=== PATIENT | female | born 1955 | race Caucasian/White ===

== ENCOUNTER 2021-03-11 06:40 | Day surgery (SDC) | payer OTHER, SELFPAY ==
[2021-03-07 10:41] VITALS: BMI 25.0
--- NOTE | 2021-03-10 13:51 | HO.ANESPROP2 ---
Documented by User: Whit Wharton 03/10/21 13:52 HPI - Anesthesia Eval Consult details Narrative: 66yo F for Colonoscopy PMFSH Past Medical History Medical History Osteopenia Surgical History Surgical History H/O breast biopsy H/O dilation and curettage History of open reduction and internal fixation (ORIF) procedure Hx of arthroscopy of shoulder Hx of colonoscopy Hx of tonsillectomy Social History Social History Patient Tobacco Use Status: Never used Tobacco Second Hand Smoke Exposure: No Use of substances other than those prescribed or required for medical reasons: No Are you DNR?: No Advance Directives: No Advance Directives Information Provided: Yes Advance Directives on File: No Nutrition Risks: No Nutritional Risk Patient : No : No Poor oral hygiene: No Meds Allergies Allergy/AdvReac Type Severity Reaction Status Date / Time No Known Allergies Allergy Unverified 06/17/20 15:46 [No Known Allergies*] Home Medications Medication Instructions Recorded Confirmed Last Taken Type raloxifene [Evista] 60 mg PO DAILY 07/06/20 07/06/20 Unknown History Exam Exam Date and Time: March 10, 2021 1351 Height,Weight and Vital Signs: Height 5 ft 2 in Weight 62.142 kg Assessment and Plan Assessment Anesthesia Assessment: Chart Reviewed Documented by User: Ines Burton 03/11/21 07:28 PMFSH Past Medical History Medical History Osteopenia Surgical History Surgical History H/O breast biopsy H/O dilation and curettage History of open reduction and internal fixation (ORIF) procedure Hx of arthroscopy of shoulder Hx of colonoscopy Hx of tonsillectomy Social History Social History (Reviewed 03/11/21 @ 07:26 by Ines Mckeon Patient Tobacco Use Status: Never used Tobacco Second Hand Smoke Exposure: No Use of substances other than those prescribed or required for medical reasons: No Are you DNR?: No Advance Directives: No Advance Directives Information Provided: Yes Advance Directives on File: No Nutrition Risks: No Nutritional Risk Patient : No : No Poor oral hygiene: No Meds Allergies Allergy/AdvReac Type Severity Reaction Status Date / Time No Known Allergies Allergy Unverified 06/17/20 15:46 [No Known Allergies*] Home Medications Medication Instructions Recorded Confirmed Last Taken Type raloxifene [Evista] 60 mg PO DAILY 07/06/20 07/06/20 Unknown History Exam Airway Mallampati Class: II TM Dist: >3cm Neck ROM: Full Loose/Missing/Broken Teeth: No Heart: RRR Lungs: CTA Assessment and Plan Assessment Anesthesia Assessment: Anesthesia Plan Discussed and Chart Reviewed Final Anesthetic Review NPO: Yes ASA Class: I and II Final Preanesthetic Review: Meds/Allgs Chart Reviewed, Consent Obtained/Reviewed and Anes Risks/Benef Reviewed Patient Risk: Low Procedure Risk: Low Anesthetic Plan Anesthetic Plan: MAC: Disposition: Standard PACU
[2021-03-11 06:41] VITALS: BMI 25.0
[2021-03-11 07:06] VITALS: BP 151/86; PULSE 74; RESP 18; TEMP 36.3; O2SAT 97
[2021-03-11] MEDS: Lactated Ringers 1,000 ML 100 ML IVCONT (07:07)
[2021-03-11 08:17] VITALS: BP 118/63; PULSE 62; RESP 18; TEMP 36.3; O2SAT 100
--- NOTE | 2021-03-11 08:20 | P.BOP_ITS ---
Brief Operative Note Date of Service: 03/11/21 Pre-op diagnosis: Screening Post-op diagnosis: other (Diverticulosis) Procedure: Colonoscopy to the cecum and TI Surgeon: Jin Walls Anesthesia: MAC Was an Brain Wave Technician used for this Procedure?: No Estimated blood loss (mL): 0 Pathology: none sent Condition: stable Disposition: PACU
[2021-03-11 08:32] VITALS: BP 149/77; PULSE 62; RESP 16; O2SAT 99
--- NOTE | 2021-03-18 12:29 | OP_ITS ---
SURGEON: Jin Walls MD INDICATIONS: The patient presents for evaluation of colorectal cancer screening. Full consent has been obtained from her for this, including risks of bleeding and perforation. PREOPERATIVE DIAGNOSIS: Colorectal cancer screening. POSTOPERATIVE DIAGNOSIS: PROCEDURE PERFORMED: Colonoscopy to cecum and terminal ileum. ESTIMATED BLOOD LOSS: COMPLICATIONS: ANESTHESIA: Monitored anesthesia care. ASSISTANTS: SPECIMENS: POSTOPERATIVE DIAGNOSES: Colorectal cancer screening, mild sigmoid diverticulosis, and internal hemorrhoids. DESCRIPTION OF PROCEDURE: The patient was placed in the left lateral decubitus position. The digital rectal exam revealed no abnormalities. The Olympus video pediatric colonoscope was entered into the rectum and advanced easily to the cecum. Once in the cecum, I did identify normal-appearing cecal pouch with appendiceal orifice and a normal-appearing ileocecal valve. The terminal ileum was cannulated and appeared normal. The scope was withdrawn back in the colon. The entire cecum and ileocecal valve appeared normal. The scope was slowly withdrawn assessing all mucosal surfaces carefully. Preparation was excellent. I did not visualize any sign of polyps, colitis, nor angiodysplasia. There was a mild amount of sigmoid diverticulosis. In the rectum, scope was retroflexed visualizing internal hemorrhoids, but no other pathology. The rectal mucosa appeared normal. The scope was straightened out and withdrawn from the patient. She tolerated the procedure well and was returned to the recovery area in stable condition. IMPRESSION: 1. Mild sigmoid diverticulosis. 2. Internal hemorrhoids. PLAN: Given the negative exam and negative family history, I would recommend a followup colonoscopy in 10 years for further screening. She will otherwise see me on a p.r.n. basis. MD SELENA Zimmerman/[place] / [phone]
== END 2021-03-11 08:45 | disposition home or self-care (01) ==
PROVIDERS: PCP Internal Medicine; Visit Provider Internal Medicine
PROC: 0DJD8ZZ Inspection of Lower Intestinal Tract, Via Natural or Artificial Opening Endoscopic (ICD-10-PCS; CPT 45378; principal; 2021-03-11 07:30)
DX: Z12.11 Encounter for screening for malignant neoplasm of colon (principal); K57.30 Diverticulosis of large intestine without perforation or abscess without bleeding; K64.8 Other hemorrhoids; M85.80 Other specified disorders of bone density and structure, unspecified site; Z79.810 Long term (current) use of selective estrogen receptor modulators (SERMs)
CPT/HCPCS: 45378

== ENCOUNTER 2024-12-29 15:18 | Outpatient (AMB) | payer OTHER, SELFPAY ==
--- NOTE | 2024-12-29 15:19 | MHC.PC.OV ---
Vital Signs 12/29/24 15:22 Height 5 ft 2 in Weight 142 lb BMI 26.0 BP 180/96 H Blood Pressure Location Lt brachial Pulse 87 Pulse Source Pulse Oximeter Temp 98.1 F Pulse Oximetry (%) 97 Intake Visit Reasons: 2 month f/u Intake Note: sensitivity on the left side Allergies No Known Allergies [No Known Allergies*] Allergy (Verified 12/29/24 15:39) Medication List - Last Reconciled 12/29/24 by Felipa Milian PA-C raloxifene (Evista) 60 mg PO DAILY PFSH Medical History (Updated 12/29/24 @ 16:09 by Felipa Milian PA-C) Alcohol use disorder Head pain Internal hemorrhoid Diverticulosis Hypertension History of hip fracture Fibrocystic breast disease Osteopenia Surgical History Hx of colonoscopy (~03/11/21) H/O dilation and curettage H/O breast biopsy Hx of arthroscopy of shoulder Hx of tonsillectomy History of open reduction and internal fixation (ORIF) procedure Social History Patient Tobacco Use Status: Never used Tobacco Second Hand Smoke Exposure: No Questionnaire PHQ-9 Over the last 2 weeks, how often have you been bothered by any of the following problems? 1. Little interest or pleasure in doing things: not at all 2. Feeling down, depressed, or hopeless: not at all 3. Trouble falling or staying asleep, or sleeping too much: nearly every day 4. Feeling tired or having little energy: more than half the days 5. Poor appetite or overeating: not at all 6. Feeling bad about yourself - or that you are a failure or have let yourself or your family down: not at all 7. Trouble concentrating on things, such as reading the newspaper or watching television: not at all 8. Moving or speaking so slowly that other people could have noticed. Or the opposite - being so fidgety or restless that you have been moving around a lot more than usual: not at all 9. Thoughts that you would be better off or of hurting yourself in some way: not at all Total score: 5 Depression Screening Interpretation: Negative Depression Screening Done: Yes 70226 - PHQ-9 Billing: Yes Source: Developed by Tran Hernandez, Mello Li and colleagues, with an educational delmy from [employer]. Thrive Questionnaire Date Thrive assessed: 12/29/24 I am a: Patient What is your living situation today?: I have a steady place to live Within the past 12 months, did the food you bought not last and you didn't have the money to get more?: Never true Within the past 12 months, did you worry whether your food would run out before you got money to buy more?: Never true Do you have trouble paying for medicines?: No Do you have trouble getting transportation to medical appointments?: No Do you have trouble paying your heating and electricity bill?: No Do you have trouble taking care of your child, family member or friend?: No Do you have trouble with day-to-day activities such as bathing, preparing meals, shopping, managing finances, etc.?: No Are you currently unemployed and looking for a job?: No Are you interested in more education?: No THRIVE Score: 0 AUDIT C Alcohol Use Questionnaire (AUDIT-C) 1. How often do you have a drink containing alcohol?: 4 or more times a week 2. How many drinks containing alcohol do you have on a typical day when you are drinking?: 1 or 2 3. How often do you have six or more drinks on one occasion?: Never Total Score: 4 Score Reviewed/Action Taken: No ELVER-7 AMB Questionnaire ELVER-7 Date ELVER - 7 assessed: 12/29/24 Feeling nervous, anxious, or on edge: 0 = Not at all Not being able to stop or control worryin = Not at all Worrying too much about different things: 1 = Several days Trouble relaxin = Not at all Being so restless that it is hard to sit still: 0 = Not at all Becoming easily annoyed or irritable: 0 = Not at all Feeling afraid as if something awful might happen: 0 = Not at all Total ELVER-7 score (0-4 normal; 5-9 mild; 10-14 moderate; 15-21 severe): 1 Source: Developed by Tran Hernandez Kurt Kroenke and colleagues, with an educational delmy from [employer]. ELVER-7 Assessment Billing ELVER-7 Assessment Tool: ELVER-7 Assessment 33986 Physical exam (Primary Care) Vital Signs: Last Vital Signs Temp 98.1 F 12/29/24 15:22 Pulse 87 12/29/24 15:22 BP 180/96 H 12/29/24 15:22 Pulse Ox 97 12/29/24 15:22 Care Plan Goal for BP management: <130/90 started on lisinopril 10 mg and return in 2-4 weeks BMI result Body Mass Index 26.0 BMI Assessment/Plan discussion: High BMI High, discussed plan: lifestyle, weight reduction, dietary, physical activity and alcohol moderation Tobacco/Smoking Status: Tobacco use Status Patient Tobacco Use Status Never used Tobacco 12/29/24 15:26 PHQ-9: PHQ-9 Score PHQ-9: Total score 5 12/29/24 16:08 Depression Screening Interpretation: Negative Thrive Assessment: Date of Thrive Assessment Date Thrive assessed 12/29/24 12/29/24 15:31 Coding Level of Care Code New Pt Level 4 (94557) Complex EM visit Add On G2211 Diagnoses Hypertension I10 Fibrocystic breast disease N60.19 Head pain R51.9 Alcohol use disorder F10.90 Additional Codes ELVER-7 Assessment Billing - ELVER-7 Assessment Tool: ELVER-7 Assessment 11343 ([id number]) PHQ-9 - 96664 - PHQ-9 Billing: Yes ([id number]) Assessment & Plan Assessment & Plan (1) Hypertension: Code(s): I10 - Essential (primary) hypertension Category: Medical Plan: The patient's hypertension is now managed with lisinopril 10 mg daily. Close monitoring through home blood pressure checks, particularly in connection with lifestyle improvements and potential alcohol reduction, will be undertaken before the next evaluation set in two weeks to adjust treatment if necessary. (2) Fibrocystic breast disease: Code(s): N60.19 - Diffuse cystic mastopathy of unspecified breast Category: Medical Plan: Mammogram ordered until patient can follow-up with her new OBGYN in March. Patient is due for mammogram. Denies any lumps. Condition is stable. (3) Head pain: Code(s): R51.9 - Headache, unspecified Category: Medical Plan: A CT scan of the head is ordered to exclude any serious underlying condition contributing to the atypical head sensation, ensuring comprehensive assessment and management of her symptoms. (4) Alcohol use disorder: Code(s): F10.90 - Alcohol use, unspecified, uncomplicated Category: Medical Plan: The patient aims to abstain again, drawing on her past success. She is encouraged to reach out if additional support is required to facilitate cessation. Plan Plan Patient was informed and verbally consented to the use of an ambient scribe for clinic note documentation during this visit. 1. Alcohol Use Disorder The patient aims to abstain again, drawing on her past success. She is encouraged to reach out if additional support is required to facilitate cessation. 2. Essential Hypertension The patient's hypertension is now managed with lisinopril 10 mg daily. Close monitoring through home blood pressure checks, particularly in connection with lifestyle improvements and potential alcohol reduction, will be undertaken before the next evaluation set in two weeks to adjust treatment if necessary. 3. Head Pain A CT scan of the head is ordered to exclude any serious underlying condition contributing to the atypical head sensation, ensuring comprehensive assessment and management of her symptoms. Discussion Notes I discussed with the patient the new diagnosis of essential hypertension, emphasizing the importance of starting medication with lisinopril at a dosage of 10 mg daily. I reviewed the risks associated with untreated hypertension, such as cardiovascular complications, and underscored the necessity of lifestyle modifications. Regarding her head pain, I explained the CT scan's importance to rule out significant intracranial issues. We talked about the patient's history of alcohol use, and though she has no desire to start medication assistance, she's aware that support is available upon request. Follow-up care in two weeks is scheduled to review blood pressure control and any CT scan findings. Orders: Orders Complete Blood Count Auto Diff 12/29/24 Z00.00 - Encounter for general adult medical examination without abnormal findings Lipid Panel 12/29/24 Z00.00 - Encounter for general adult medical examination without abnormal findings Vitamin B12 and Folate 12/29/24 Z00.00 - Encounter for general adult medical examination without abnormal findings Vitamin A 12/29/24 Z00.00 - Encounter for general adult medical examination without abnormal findings Zinc 12/29/24 Z00.00 - Encounter for general adult medical examination without abnormal findings CT head/brain wo IV con 12/29/24 I10 - Essential (primary) hypertension, K57.90 - Diverticulosis of intestine, part unspecified, without perforation or abscess without bleeding, K64.8 - Other hemorrhoids, N60.19 - Diffuse cystic mastopathy of unspecified breast, R51.9 - Headache, unspecified Comprehensive [place]. Panel Fast 12/29/24 Z00.00 - Encounter for general adult medical examination without abnormal findings C Reactive Protein 12/29/24 Z00. - Encounter for general adult medical examination without abnormal findings Erythrocyte Sedimentation Rate 12/29/24 Z00. - Encounter for general adult medical examination without abnormal findings Liver Panel 12/29/24 Z. - Encounter for general adult medical examination without abnormal findings Magnesium 12/29/24 Z00. - Encounter for general adult medical examination without abnormal findings Hemoglobin A1c 12/29/24 Z00. - Encounter for general adult medical examination without abnormal findings Vitamin D 25-OH Total 12/29/24 Z00. - Encounter for general adult medical examination without abnormal findings TSH reflex Free T4 12/29/24 Z00. - Encounter for general adult medical examination without abnormal findings Vitamin B1 12/29/24 Z00.00 - Encounter for general adult medical examination without abnormal findings MM screening mammo BI 12/29/24 Z12.31 - Encounter for screening mammogram for malignant neoplasm of breast Medications: New lisinopril 10 mg PO DAILY 30 tabs 0RF I10 - Essential (primary) hypertension Patient Instructions: Patient Instructions - Start lisinopril 10 mg every morning. - Purchase and use a home blood pressure monitor daily, taking readings two hours post-medication. - Adopt a low-salt diet and increase physical activity. - Continue abstaining from alcohol and monitor for any withdrawal symptoms. - Attend follow-up appointment in two weeks to reassess blood pressure management and review CT scan results. - Complete labs as instructed, fasting as required, and await scheduling call for the CT scan. - Seek immediate care for any sudden or severe headache, new symptoms, or signs of hypertensive urgency/emergency. Scribe Plan - Not visible on output: History of Present Illness The patient is a 69-year-old female presenting with elevated blood pressure and head pain. She reported normal blood pressure until October when an elevated reading was noted during an emergency visit while suffering flu-like symptoms. Current readings at the office visit were high. She is not on antihypertensive medication, but lisinopril is now prescribed today and patient is agreeable. Head pain has been present without the classic headache features, described as a spot-sensitive sensation on the scalp without the typical attributes of headache. She will have a CT scan for further evaluation ordered today. She has a history of alcohol use, previously abstaining for six months but recently resumed due to situational stressors. Although she has stopped drinking since Sunday. She denies any tremors, nausea vomiting or any other withdrawal symptoms at this time. 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 - Alcohol Use: Reports previous heavy use, abstained for six months, and then resumed; currently intending to cease use again. - Physical Activity: No specific exercise regimen discussed. - Weight Management: Lost 17-18 pounds while abstaining from alcohol last summer. - Plans to retire shortly, has imminent longterm paperwork and considerations. Review of Systems - General: Denies fatigue, dizziness, or headache. - Cardiovascular: Reports no chest pain, shortness of breath, leg swelling. - Neurological: Reports usual head sensation is exacerbated by touching but denies regular headache. Physical Exam Appearance: Alert. Oriented X3. No acute distress. Head: Normal external exam. Normocephalic. Atraumatic. Reports a funny sensation on the scalp and pain in a specific spot on the head when touched. Eyes: Pupils are equal, round, and reactive to light. Extraocular movements intact. Conjunctiva and sclera normal. Eyelids normal. Ears: External auditory canal normal. Tympanic membranes normal. Throat: Pharynx normal. Uvula midline. Moist mucous membranes. Neck: Normal inspection. Neck supple. Full range of motion. No adenopathy. Thyroid Normal. No meningeal signs. No neck mass noted. Cardiovascular: Blood pressure recorded as high at 180/96. Normal heart rate and rhythm. Heart sound normal. No murmurs noted. Pulses normal throughout. Respiratory: No respiratory distress. Painless inspiration. Breath sounds normal. No wheezes/rales/rhonchi noted. Chest nontender. No accessory muscle usage noted or decreased air movement noted. Abdomen: Soft and nontender. Bowel sounds normal in all 4 quadrants. No distention noted. No organomegaly noted. No visible injury noted. Back: No costovertebral angle tenderness. Full range of motion noted. Skin: Skin warm and dry. Normal skin color. Normal skin turgor. No rashes/lesions/lacerations noted. Extremities: No lower extremity edema. Extremities exhibit normal range of motion. Extremities nontender. Neuro: Oriented X 3. No motor deficit. No sensory deficit. Reflexes normal. Reports a funny sensation on the scalp and pain in a specific spot on the head when touched. Results - Labs pending: CBC, CMP, ESR, CRP, lipid panel, liver panel, magnesium, hemoglobin A1c. - Imaging pending: CT scan of the head.
[2024-12-29 15:22] VITALS: BP 180/96; PULSE 87; TEMP 36.7; O2SAT 97; BMI 26.0
--- OUTSIDE RECORDS SUMMARY | 2024-12-29 17:17 | XMS_ITS | Patient Health Record ---
Author Organization [facility] Address [address] [place] [address] Care Team Providers Care Precision Crop Manager Name Role Phone Bhavesh (RETIRED) Jin MULLIGAN Primary Care Provid er Unavailable Jin Walls Unavailable [phone] Reason For Referral No Information Medications Medication SIG (Take, Route, Frequency, Duration) Notes Start Date End Date Status Raloxifene HCl 60 MG Orally Active Calcium magnesium Active Vitamin D Active Vitamin B Complex Ac tive Immunizations Vaccine Route Administration Date Status Comme nts Influenza Unknown 07/14/2020 Administered Social History Tobacco Use: Social History Observation Description Date Details (start date - stop date) Never Smoker NA - NA Tobacco Use/Smoking Question Answer Notes Patient is a nonsmoker Alcohol Screen Question Answer Notes Did you have a drink contain ing alcohol in the past year? Yes How often did you have a dri nk containing alcohol in the past year? 4 or more times a week (4 points) How many drinks did you have on a typical day when you were drinking in the past year? 1 or 2 drinks (0 point) How often did you have 6 or more drinks on one occasion in the past year? Never (0 point) Points 4 Interpretation Positive Section Notes: Nonsmoker; wine with dinner Problems Problem Type SNOMED Code ICD Code Onset Dates Problem Status W/U Status Risk Notes Problem [id number] Encounter for screening for malignant neoplasm of colon (Z12.11) Active confirmed Problem [id number] Preprocedural examination (Z01.818) Active confirmed Plan Of Treatment Future Test Test Name Order Date COLONOSCOPY 02/23/2021 Insurance Providers Payer Name Payer Address Payer Phone Subscriber Number Group Number Insured Name Patient Relationship to Insured Coverage Start Date Coverage End Date [facility] INDEMNITY [address] [place] [address] [id number] EDMAR PASCUAL Self - patient is the insured Medical (General) History Medical History History ICD Code Osteopenia Denies AL,DM,CVA,Lung disease,renal dise ase Negative screening colonoscopy in 2007 Surgical History Surgery Date(Month/Year) Rotator cuff tear repair on the right Acetabular fracture-right hip
--- OUTSIDE RECORDS SUMMARY | 2024-12-29 17:17 | XMS_ITS ---
Author Organization [facility] Care Team Providers Care Human Resources Communications Manager Name Role Phone Mary Dominguez Unavailable Unavailable Whit Tiwari Unavailable Unavailable Tyrell, Matt Unavailable Unavailable Allergies and adverse reactions Code CodeSystem Substance Reaction Severity StartDate Concern Status Benadryl Unknown 05/24/2017 active Care Team Name Role Address Phone Organization Dates Whit Tiwari PCP [address] [place] [address], [address], [place] (Office): : [facility] 05/24/2017 - 05/25/2017 Mary Dominguez Attending Physician [address] [place], [address], [place] (Office): : [facility] 05/24/2017 - 05/25/2017 Matt Santillan Attending Physician [address] [place], [address], [place] (Office): [facility] 05/24/2017 - 05/25/2017 Mental Status Section Date Assessment Total Score Description 05/25/2017 CAM 0 No delirium ind icated Problems Problem # Description Date of onset Resolved Date Code CodeSystem Concern Status 1 DIFFICULTY IN WALKING, NOT ELSEWHERE CLASSIFIED 05/24/[address] active 2 MUSCLE WEAKNESS (GENERALIZED) 05/24/[address] active 3 UNSPECIFIED ABNORMALITIES OF GAIT AND MOBILITY 05/24/[address] active 4 UNSPECIFIED DISLOCATION OF RIGHT HIP, SUBSEQUENT ENCOUNTER 05/24/[address] active 5 UNSPECIFIED FRACTURE OF RIGHT ACETABULUM, SUBSEQUENT ENCOUNTER FOR FRACTURE WITH ROUTINE HEALING 05/24/[address] active Reason for Referral No Reasons for Referral Entered Social History Social History Observation Description Start Date End Date Code Code System Current Smoking Status Tobacco smoking consumption unknown 972107070 SNOMED CT Sex Assigned At Female 1955 40499-6 [facility] Vital Signs Code Code System Vitals Name Values and Units Timing Information 9279-1 [facility] Respiratory Rate Value=18.0 Units=/m in 05/25/2017 8462-4 [facility] Blood Pressure-Diastolic Value=68 Un its=mmHg 05/25/2017 8480-6 [facility] Blood Pressure-Systolic Soeao=802 Un its=mmHg 05/25/2017 8310-5 [facility] Body Temperature Value=98.6 Units=?? F 05/25/2017 8867-4 [facility] Heart rate Value=85.0 Units=/min 44007-9 [facility] O2 % BldC Oximetry Value=96.0 Units= % 05/25/2017 26367-0 [facility] Pain Level Value=8.0 05/25/2017
--- OUTSIDE RECORDS SUMMARY | 2024-12-29 17:18 | XMS_ITS | Patient Health Record ---
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 Name Role Phone Jin Ospina DO Primary Care Provider Unavail able Allergies No Known Allergies Reason For Referral No Information Medications Medication SIG (Take, Route, Fr equency, Duration) Notes Start Date End Date Status Raloxifene HCl 60 MG 1 tablet Orally Onc e a day for 30 day(s) Active Plan Of Treatment No Information Insurance Providers Payer Name Payer Address Payer Phone Subscriber Number Group Number Insured Name Patient Relationship to Insured Coverage Start Date Coverage End Date [facility] [address] [place] [phone] [id number] Camille Lam Self - patient is the insured
== END 2024-12-29 16:03 | disposition home or self-care (01) ==
LOC: HO.HMCSH 15:18
PROVIDERS: PCP Internal Medicine; Visit Provider Physician Assistant Medical
DX: I10 Essential (primary) hypertension (principal); N60.19 Diffuse cystic mastopathy of unspecified breast; R51.9 Headache, unspecified; F10.90 Alcohol use, unspecified, uncomplicated

== ENCOUNTER → 2024-12-29 15:18 | Outpatient (BNVA) | payer OTHER, SELFPAY | PROVIDERS: PCP Internal Medicine; Visit Provider Physician Assistant Medical | DX: I10 Essential (primary) hypertension (principal); N60.19 Diffuse cystic mastopathy of unspecified breast; R51.9 Headache, unspecified; F10.90 Alcohol use, unspecified, uncomplicated; Z79.899 Other long term (current) drug therapy | CPT/HCPCS: 96127 ==

== ENCOUNTER 2025-01-20 15:39 | Outpatient (AMB) | payer OTHER, SELFPAY ==
[2025-01-20 16:05] VITALS: BP 124/72; PULSE 84; RESP 14; TEMP 36.6; O2SAT 97; BMI 25.1
--- NOTE | 2025-01-20 16:05 | A.OFFPC_ITS ---
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 Accompanied by: Self / Same As Patient Allergies No Known Allergies [No Known Allergies*] Allergy (Verified 01/20/25 16:28) Medication List - Last Reconciled 01/20/25 by Felipa Milian PA-C lisinopril 10 mg PO DAILY raloxifene (Evista) 60 mg PO DAILY Tobacco use date assessed: 01/20/25 Fall risk assessment: No Falls in past year Last assessed Fall Risk: 01/20/25 Dental Screening Dental Screen Date: 01/20/25 Did you have a dental visit in the last 12 months?: Yes Did you have a dental problem in the last 6 months where you did not have access to dental care?: No Was dental information given to patient?: Patient has dentist HPI 3 week follow up HPI Details The patient is a 69-year-old female presenting with a follow-up for essential hypertension management. Her blood pressure was initially elevated but has been well-controlled with lisinopril 10 mg daily, maintaining her systolic readings in the 120s to 130s range. The patient also experiences persistent insomnia, opting for non-pharmacological approaches to address it, such as enhancing her exercise routine. 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 This cough does not currently require a change in medication but will be monitored for any increase in severity or frequency. Social history - Employment: The patient appears to be employed and has just come from work. - Family Status: Has two boys. - Exercise: Intends to increase physical exercise to help with sleep issues. [facility], [facility] Medical History (Updated 01/20/25 @ 17:30 by Felipa Milian PA-C) Cough Insomnia Alcohol use disorder Head pain Internal hemorrhoid Diverticulosis Hypertension History of hip fracture Fibrocystic breast disease Osteopenia Surgical History Hx of colonoscopy (~03/11/21) H/O dilation and curettage H/O breast biopsy Hx of arthroscopy of shoulder Hx of tonsillectomy History of open reduction and internal fixation (ORIF) procedure Family History Mother Heart disease Diabetes Father Heart attack Social History Housing: House Alcohol intake: current Alcohol intake frequency: a few times a week Alcohol type: wine Patient Tobacco Use Status: Never used Tobacco Second Hand Smoke Exposure: Yes service: No Current occupational status: employed Cognitive needs: No Hearing needs: No Vision needs: Yes (rx glasses) Questionnaire PHQ-9 Over the last 2 weeks, how often have you been bothered by any of the following problems? 1. Little interest or pleasure in doing things: not at all 2. Feeling down, depressed, or hopeless: not at all 3. Trouble falling or staying asleep, or sleeping too much: not at all 4. Feeling tired or having little energy: not at all 5. Poor appetite or overeating: not at all 6. Feeling bad about yourself - or that you are a failure or have let yourself or your family down: not at all 7. Trouble concentrating on things, such as reading the newspaper or watching television: not at all 8. Moving or speaking so slowly that other people could have noticed. Or the opposite - being so fidgety or restless that you have been moving around a lot more than usual: not at all 9. Thoughts that you would be better off or of hurting yourself in some way: not at all Total score: 0 Depression Screening Interpretation: Negative Depression Screening Done: Yes 13071 - PHQ-9 Billing: Yes Source: Developed by Drs. Jin Nails, Tran Scott, Mello Li and colleagues, with an educational delmy from [employer]. Thrive Questionnaire Date Thrive assessed: 01/20/25 I am a: Patient What is your living situation today?: I have a steady place to live Within the past 12 months, did the food you bought not last and you didn't have the money to get more?: Never true Within the past 12 months, did you worry whether your food would run out before you got money to buy more?: Never true Do you have trouble paying for medicines?: No Do you have trouble getting transportation to medical appointments?: No Do you have trouble paying your heating and electricity bill?: No Do you have trouble taking care of your child, family member or friend?: No Do you have trouble with day-to-day activities such as bathing, preparing meals, shopping, managing finances, etc.?: No Are you currently unemployed and looking for a job?: No Are you interested in more education?: No Please select the resources that you would like help with: None THRIVE Score: 0 AUDIT C Alcohol Use Questionnaire (AUDIT-C) 1. How often do you have a drink containing alcohol?: 2-3 times a week 2. How many drinks containing alcohol do you have on a typical day when you are drinking?: 1 or 2 3. How often do you have six or more drinks on one occasion?: Never Total Score: 3 Score Reviewed/Action Taken: No ELVER-7 AMB Questionnaire ELVER-7 Date ELVER - 7 assessed: 01/20/25 Feeling nervous, anxious, or on edge: 0 = Not at all Not being able to stop or control worryin = Not at all Worrying too much about different things: 0 = Not at all Trouble relaxin = Not at all Being so restless that it is hard to sit still: 0 = Not at all Becoming easily annoyed or irritable: 0 = Not at all Feeling afraid as if something awful might happen: 0 = Not at all Total ELVER-7 score (0-4 normal; 5-9 mild; 10-14 moderate; 15-21 severe): 0 Source: Developed by Drs. Jin Nails, Tran Scott, Mello Li and colleagues, with an educational delmy from [employer]. ELVER-7 Assessment Billing ELVER-7 Assessment Tool: ELVER-7 Assessment 14628 Review of Systems Const Details: - Cardiovascular: Reports stable blood pressure readings at home. - Respiratory: Reports a mild dry cough in the morning that resolves quickly. - Neurological: Denies new neurological symptoms; a brain CAT scan has been scheduled but not yet completed. - Sleep: Reports persistent insomnia. Physical exam (Primary Care) Vital Signs: Last Vital Signs Temp 97.9 F 01/20/25 16:05 Pulse 84 01/20/25 16:05 Resp 14 01/20/25 16:05 BP 124/72 01/20/25 16:05 Pulse Ox 97 01/20/25 16:05 Oxygen Delivery Method Room Air 01/20/25 16:05 Care Plan Goal for BP management: <130/90 at Goal BMI result Body Mass Index 25.1 BMI Assessment/Plan discussion: High BMI High, discussed plan: lifestyle, weight reduction, dietary, physical activity and alcohol moderation Tobacco/Smoking Status: Tobacco use Status Tobacco use date assessed 01/20/25 01/20/25 16:07 Patient Tobacco Use Status Never used Tobacco 01/20/25 16:24 PHQ-9: PHQ-9 Score PHQ-9: Total score 0 01/20/25 16:24 Depression Screening Interpretation: Negative Thrive Assessment: Date of Thrive Assessment Date Thrive assessed 01/20/25 01/20/25 16:07 Const Other: Appearance: Alert. Oriented X3. No acute distress. Head: Normal external exam. Normocephalic. Atraumatic. Eyes: Pupils are equal, round, and reactive to light. Extraocular movements intact. Conjunctiva and sclera normal. Eyelids normal. Throat: Pharynx normal. Uvula midline. Moist mucous membranes. Neck: Normal inspection. Neck supple. Full range of motion. Cardiovascular: Normal heart rate and rhythm. Heart sound normal. No murmurs noted. Respiratory: No respiratory distress. Painless inspiration. Breath sounds normal. No wheezes/rales/rhonchi noted. Chest nontender. No accessory muscle usage noted or decreased air movement noted. Back: Full range of motion noted. Skin: Skin warm and dry. Normal skin color. Normal skin turgor. No rashes/lesions/lacerations noted. Extremities: Extremities exhibit normal range of motion. Neuro: Oriented X 3. No motor deficit. No sensory deficit. Reflexes normal. Results Reviewed Results Reviewed: - Tests and Diagnostics: - Brain CAT scan appointment pending. - Mammogram not performed yet. - Diagnostics: Blood pressure readings stabilized between 120s/80s to 130s/80s. Coding Level of Care Code Est Pt Level 3 (90051) Complex EM visit Add On G2211 Diagnoses Hypertension I10 Insomnia G47.00 Cough R05.9 Additional Codes PHQ-9 - 34431 - PHQ-9 Billing: Yes ([id number]) ELVER-7 Assessment Billing - ELVER-7 Assessment Tool: ELVER-7 Assessment [id number] ([id number]) Assessment & Plan Assessment & Plan (1) Hypertension: Code(s): I10 - Essential (primary) hypertension Category: Medical Plan: The patient's hypertension is well-managed with lisinopril. Stable home blood pressure confirms medication effectiveness. Follow-up scheduled in three months to assess control and complete outstanding diagnostic tests. Condition is chronic and stable continue to monitor. (2) Insomnia: Code(s): G47.00 - Insomnia, unspecified Category: Medical Plan: The patient intends to increase exercise to aid sleep management. Pharmacologic intervention is deferred at this time, with a follow-up recommended should insomnia persist. Condition is chronic and stable continue to monitor. (3) Cough: Code(s): R05.9 - Cough, unspecified Category: Medical Plan: machine milker cough presumed related to lisinopril is being monitored. No current change in medication is required unless symptoms exacerbate. Condition is intermittent and stable will continue to monitor. Plan Plan Patient was informed and verbally consented to the use of an ambient scribe for clinic note documentation during this visit. 1. Essential Hypertension The patient's hypertension is well-managed with lisinopril. Stable home blood pressure confirms medication effectiveness. Follow-up scheduled in three months to assess control and complete outstanding diagnostic tests. 2. Insomnia The patient intends to increase exercise to aid sleep management. Pharmacologic intervention is deferred at this time, with a follow-up recommended should insomnia persist. 3. 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 No current change in medication is required unless symptoms exacerbate. During our visit, I reviewed the patient's blood pressure management, which showed improvement and stabilization due to adherence to her lisinopril regimen. The patient expressed satisfaction with current therapy and demonstrated understanding of the importance of consistent monitoring. We discussed her insomnia, deciding collectively to trial increased physical activity before considering medication. I highlighted that persistent insomnia might warrant a low-dose sedative if non-pharmacological interventions fail. Her cough, likely a side effect of lisinopril, will continue to be monitored to ensure it doesn't impede quality of life, and I reassured her that medication change is an option should symptoms worsen. Follow-ups are planned for three months hence, with outstanding tests to be completed beforehand. Patient Instructions: - Monitor your blood pressure regularly at home. - Increase physical activity to assist with sleeping; let us know if sleep problems persist. - Observe for any increase in your morning cough and report if it becomes bothersome. - Complete your brain CAT scan and blood work as soon as possible. - Schedule and complete a mammogram. - Follow up with me in three months or sooner if new symptoms develop or current symptoms worsen.
== END 2025-01-20 16:33 | disposition home or self-care (01) ==
LOC: HO.HMCSH 15:39
PROVIDERS: PCP Internal Medicine; Visit Provider Physician Assistant Medical
DX: I10 Essential (primary) hypertension (principal); G47.00 Insomnia, unspecified; R05.9 Cough, unspecified

== ENCOUNTER → 2025-01-20 15:39 | Outpatient (BNVA) | payer OTHER, SELFPAY | PROVIDERS: PCP Internal Medicine; Visit Provider Physician Assistant Medical | DX: I10 Essential (primary) hypertension (principal); G47.00 Insomnia, unspecified; R05.9 Cough, unspecified; Z79.899 Other long term (current) drug therapy | CPT/HCPCS: 96127 ==

== ENCOUNTER 2025-02-18 07:43 | Outpatient (REF) | payer OTHER, SELFPAY ==
--- NOTE | ~2025-02-18 | CT_ITS ---
EXAMINATION: CT HEAD WITHOUT IV CONTRAST HISTORY: R51.9 - Headache, unspecified. TECHNIQUE: Unenhanced helical CT of the head was performed per standard departmental protocol. Coronal and sagittal reformats of the head were also evaluated. One or more of the following techniques was used for dose reduction: Automated exposure control, adjustment of the mA and/or kV according to patient size, use of iterative reconstruction technique. DLP: 683 mGy-cm COMPARISON: There are no prior studies for comparison. FINDINGS: BRAIN: The brain parenchyma is unremarkable. There is normal baig/white differentiation. The ventricular system is normal in size and configuration. There is no mass effect or midline shift. No intra- or extra-axial fluid collections are identified. SINUSES: The visualized paranasal sinuses are clear. The mastoid air cells and middle ear cavities are well pneumatized. ORBITS: The visualized orbits are unremarkable. BONES/SOFT TISSUES: The extracranial soft tissues are unremarkable. The calvarium is intact. No suspicious lytic or sclerotic lesions. CT/CT head/brain wo IV con IMPRESSION: Unremarkable unenhanced head CT. Electronically signed by: Jin Dickens MD 02/18/2025 08:38 AM EDT
== END 2025-02-18 07:44 | disposition home or self-care (01) ==
LOC: HO.CT 07:43
PROVIDERS: PCP Internal Medicine; Visit Provider Physician Assistant Medical
DX: R51.9 Headache, unspecified (principal); K64.8 Other hemorrhoids; K57.90 Diverticulosis of intestine, part unspecified, without perforation or abscess without bleeding; I10 Essential (primary) hypertension; N60.19 Diffuse cystic mastopathy of unspecified breast
CPT/HCPCS: 70450

== ENCOUNTER → 2025-02-18 07:45 | Outpatient (BNV) | payer OTHER, SELFPAY | PROVIDERS: PCP Internal Medicine; Visit Provider Radiology Diagnostic Radiology | DX: R51.9 Headache, unspecified (principal) | CPT/HCPCS: 70450 ==

== ENCOUNTER 2025-03-10 14:44 | Outpatient (REF) | payer OTHER, SELFPAY | END 2025-03-10 14:45 | disposition home or self-care (01) | LOC: HO.MAMMO 14:44 | PROVIDERS: PCP Physician Assistant Medical; Visit Provider Physician Assistant Medical | DX: Z12.31 Encounter for screening mammogram for malignant neoplasm of breast (principal) | CPT/HCPCS: 77063; 77067 ==

== ENCOUNTER → 2025-03-10 14:45 | Outpatient (BNV) | payer OTHER, SELFPAY | PROVIDERS: PCP Physician Assistant Medical; Visit Provider Internal Medicine | DX: Z12.31 Encounter for screening mammogram for malignant neoplasm of breast (principal) | CPT/HCPCS: 77063; 77067 ==

== ENCOUNTER 2025-03-19 14:10 | Outpatient (AMB) | payer OTHER, SELFPAY ==
[2025-03-19 14:13] VITALS: BP 107/55; PULSE 88; RESP 14; TEMP 36.6; O2SAT 98; BMI 24.9
--- NOTE | 2025-03-19 14:13 | MHC.PC.OV ---
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 Symptoms began on Sunday after breakfast, with chills and fatigue experienced at work. Sweating and night sweats suggest possible fever, though temperature was not measured. Nausea without vomiting and constipation have been present since Sunday, with a single bowel movement since onset. The patient denies diarrhea and has tolerated small amounts of food and water. Headache is described as pulsing pain on one side, temporarily relieved by Advil but recurring after a few hours. The headache may be related to fever. Abdominal pain is localized to the upper quadrant, initially suspected to be due to constipation-related blockage. Pain is suspected to be gallbladder-related, especially after fatty food consumption. Family history of gallbladder issues and anatomical predisposition are noted. Social History - Alcohol Use: Reports occasional alcohol consumption, advised to avoid during current symptoms. [facility] Medical History Upper abdominal pain Cough Insomnia Alcohol use disorder Head pain Internal hemorrhoid Diverticulosis Hypertension History of hip fracture Fibrocystic breast disease Osteopenia Surgical History Hx of colonoscopy (~03/11/21) H/O dilation and curettage H/O breast biopsy Hx of arthroscopy of shoulder Hx of tonsillectomy History of open reduction and internal fixation (ORIF) procedure Family History Mother Heart disease Diabetes Father Heart attack Social History Housing: House Alcohol intake: current Alcohol intake frequency: a few times a week Alcohol type: wine Patient Tobacco Use Status: Never used Tobacco Second Hand Smoke Exposure: Yes service: No Current occupational status: employed Cognitive needs: No Hearing needs: No Vision needs: Yes (rx glasses) Questionnaire PHQ-9 Over the last 2 weeks, how often have you been bothered by any of the following problems? 1. Little interest or pleasure in doing things: not at all 2. Feeling down, depressed, or hopeless: not at all 3. Trouble falling or staying asleep, or sleeping too much: not at all 4. Feeling tired or having little energy: not at all 5. Poor appetite or overeating: not at all 6. Feeling bad about yourself - or that you are a failure or have let yourself or your family down: not at all 7. Trouble concentrating on things, such as reading the newspaper or watching television: not at all 8. Moving or speaking so slowly that other people could have noticed. Or the opposite - being so fidgety or restless that you have been moving around a lot more than usual: not at all 9. Thoughts that you would be better off or of hurting yourself in some way: not at all Total score: 0 Depression Screening Interpretation: Negative Depression Screening Done: Yes 99499 - PHQ-9 Billing: Yes Source: Developed by Drs. Jin Nails, Tran Scott, Mello Li and colleagues, with an educational delmy from [employer]. Thrive Questionnaire Date Thrive assessed: 01/20/25 I am a: Patient What is your living situation today?: I have a steady place to live Within the past 12 months, did the food you bought not last and you didn't have the money to get more?: Never true Within the past 12 months, did you worry whether your food would run out before you got money to buy more?: Never true Do you have trouble paying for medicines?: No Do you have trouble getting transportation to medical appointments?: No Do you have trouble paying your heating and electricity bill?: No Do you have trouble taking care of your child, family member or friend?: No Do you have trouble with day-to-day activities such as bathing, preparing meals, shopping, managing finances, etc.?: No Are you currently unemployed and looking for a job?: No Are you interested in more education?: No Please select the resources that you would like help with: None THRIVE Score: 0 AUDIT C Alcohol Use Questionnaire (AUDIT-C) 1. How often do you have a drink containing alcohol?: 2-3 times a week 2. How many drinks containing alcohol do you have on a typical day when you are drinking?: 1 or 2 3. How often do you have six or more drinks on one occasion?: Never Total Score: 3 Score Reviewed/Action Taken: No ELVER-7 AMB Questionnaire ELVER-7 Date ELVER - 7 assessed: 01/20/25 Feeling nervous, anxious, or on edge: 0 = Not at all Not being able to stop or control worryin = Not at all Worrying too much about different things: 0 = Not at all Trouble relaxin = Not at all Being so restless that it is hard to sit still: 0 = Not at all Becoming easily annoyed or irritable: 0 = Not at all Feeling afraid as if something awful might happen: 0 = Not at all Total ELVER-7 score (0-4 normal; 5-9 mild; 10-14 moderate; 15-21 severe): 0 Source: Developed by Drs. Jin Nails, Tran Scott, Mello Li and colleagues, with an educational delmy from [employer]. ELVER-7 Assessment Billing ELVER-7 Assessment Tool: ELVER-7 Assessment 25858 Review of Systems Const Details: - General: Reports fever, chills, and fatigue. - Gastrointestinal: Reports nausea and constipation; denies diarrhea. - Neurological: Reports headache; denies dizziness. - Respiratory: Denies cough, congestion, or sore throat. Physical exam (Primary Care) Vital Signs: Last Vital Signs Temp 97.8 F 03/19/25 14:13 Pulse 88 03/19/25 14:13 Resp 14 03/19/25 14:13 BP 107/55 L 03/19/25 14:13 Pulse Ox 98 03/19/25 14:13 Oxygen Delivery Method Room Air 03/19/25 14:13 BMI result Body Mass Index 24.9 Tobacco/Smoking Status: Tobacco use Status Tobacco use date assessed 03/19/25 03/19/25 14:17 Patient Tobacco Use Status Never used Tobacco 03/19/25 14:17 PHQ-9: PHQ-9 Score PHQ-9: Total score 0 03/19/25 14:17 Depression Screening Interpretation: Negative Thrive Assessment: Date of Thrive Assessment Date Thrive assessed 01/20/25 03/19/25 14:17 Const Other: Appearance: Alert. Oriented X3. No acute distress. Head: Normal external exam. Normocephalic. Atraumatic. Reports pulsing headache pain every three to six seconds on one side of the head and in the back. Eyes: Pupils are equal, round, and reactive to light. Extraocular movements intact. Conjunctiva and sclera normal. Eyelids normal. Ears: External auditory canal normal. Tympanic membranes normal. Throat: Pharynx normal. Uvula midline. Moist mucous membranes. Neck: Normal inspection. Neck supple. Full range of motion. No adenopathy. Thyroid Normal. No meningeal signs. No neck mass noted. Cardiovascular: Normal heart rate and rhythm. Heart sound normal. No murmurs noted. Pulses normal throughout. Respiratory: No respiratory distress. Painless inspiration. Breath sounds normal. No wheezes/rales/rhonchi noted. Chest nontender. No accessory muscle usage noted or decreased air movement noted. Abdomen: Bowel sounds normal in all 4 quadrants. Reports abdominal pain, particularly in the upper region, possibly related to gallbladder. No distention noted. No organomegaly noted. No visible injury noted. He had a Rovsing sign. Negative psoas sign. Negative obturator sign. Negative Morris's sign Back: No costovertebral angle tenderness. Full range of motion noted. Skin: Skin warm and dry. Normal skin color. Normal skin turgor. No rashes/lesions/lacerations noted. Extremities: No lower extremity edema. Extremities exhibit normal range of motion. Extremities nontender. Neuro: Oriented X 3. No motor deficit. No sensory deficit. Reflexes normal. Coding Level of Care Code Est Pt Level 5 (85663) Complex EM visit Add On G2211 Diagnoses Head pain R51.9 Upper abdominal pain R10.10 Fever R50.9 Nausea R11.0 Constipation K59.00 Additional Codes ELVER-7 Assessment Billing - ELVER-7 Assessment Tool: ELVER-7 Assessment 94617 ([id number]) PHQ-9 - 53325 - PHQ-9 Billing: Yes ([id number]) Assessment & Plan Assessment & Plan (1) Head pain: Code(s): R51.9 - Headache, unspecified Category: Medical Plan: The patient is advised to use Advil or Tylenol for headache relief, but not to overuse to avoid masking symptoms. (2) Upper abdominal pain: Code(s): R10.10 - Upper abdominal pain, unspecified Category: Medical Plan: An abdominal ultrasound has been ordered to evaluate the gallbladder. The patient is advised to avoid fatty foods and alcohol until further evaluation. If symptoms worsen, she should seek emergency care. (3) Fever: Code(s): R50.9 - Fever, unspecified Plan: The patient is advised to monitor her temperature at home and report any significant increases. If fever persists or worsens, she should seek emergency care. (4) Nausea: Code(s): R11.0 - Nausea Plan: Nausea medication has been prescribed and sent to the pharmacy. (5) Constipation: Code(s): K59.00 - Constipation, unspecified Plan: The patient is advised to maintain hydration and monitor bowel movements. Plan Plan Patient was informed and verbally consented to the use of an ambient scribe for clinic note documentation during this visit. 1. Fever The patient is advised to monitor her temperature at home and report any significant increases. If fever persists or worsens, she should seek emergency care. 2. Nausea Nausea medication has been prescribed and sent to the pharmacy. 3. Constipation The patient is advised to maintain hydration and monitor bowel movements. 4. Headache The patient is advised to use Advil or Tylenol for headache relief, but not to overuse to avoid masking symptoms. 5. Possible Cholecystitis An abdominal ultrasound has been ordered to evaluate the gallbladder. The patient is advised to avoid fatty foods and alcohol until further evaluation. If symptoms worsen, she should seek emergency care. I discussed with the patient the possibility of gallbladder issues, given her symptoms and family history. We talked about the importance of getting an abdominal ultrasound and avoiding fatty foods and alcohol. I emphasized the need to monitor her symptoms closely and to seek emergency care if they worsen. We also discussed the use of nausea medication and the importance of not masking symptoms with excessive use of pain relievers. Orders: Orders SARS-CoV2/FLU/RSV Today R09.89 - Other specified symptoms and signs involving the circulatory and respiratory systems Lipase Today R10.10 - Upper abdominal pain, unspecified Amylase Today R10.10 - Upper abdominal pain, unspecified Comprehensive Met. Panel Today Z00.00 - Encounter for general adult medical examination without abnormal findings US abdomen limited Today R10.10 - Upper abdominal pain, unspecified Medications: New ondansetron 4 mg PO Q8H PRN 20 tabs 0RF nausea and vomiting ibuprofen 800 mg PO Q8H 30 tabs 0RF acetaminophen 1,000 mg (2 x 500 mg) PO Q6H PRN 30 tabs 0RF pain Patient Instructions: - Monitor your temperature at home and report any significant increases. - Take nausea medication as prescribed. - Maintain hydration and monitor bowel movements. - Use Advil or Tylenol for headache relief, but avoid overuse. - Avoid fatty foods and alcohol until further evaluation. - Seek emergency care if symptoms worsen, especially if experiencing severe abdominal pain or high fever.
--- OUTSIDE RECORDS SUMMARY | 2025-03-19 15:28 | XMS_ITS | Data Portability ---
Author Organization [place] [facility] [place] [facility], [facility] Address [address] [place] [address] Care Team Providers Care Family Dentist Name Role Phone JO RAMSEY Primary Care Provider Assessment No assessment recorded. Plan of Treatment Reminders Order Date Submit Date Provider Last Modified By Organization Details Last Modified Time Details Appointments RECHECK 15 2024 10:15A M Nissa Boswell CNP Not available Not available Not available NEW PROBLEM 2024 02:15P M Jahaira Zapien PA-C Not available Not available Not available Lab None recorded. Referral physical therapist referral - Lumbar core 2024 025 Not available 03/18/2025 10:36:09 Procedures None recorded. Surgeries None recorded. Imaging XR, lumbar spine, 2 view - 2v Lspine. room 304 2024 025 [facility], [address], [place], [address], 03/18/2025 10:36:09 XR, foot, 3 or more view - new pt 3 views left foot wb rm 104 2023 024 [facility], [address], [place], [address], 07/23/2024 15:39:38 Medication Orders Medrol (Clyde) 4 mg tablets in a dose pack 2024 025 [email or web address] [id number], [address] [place], [address], 03/13/2025 08:53:23 Patient TargetsNo targets recorded. Patient InstructionsNo instructions recorded. Reason for Referral Physical Therapist Referral for Lumbar radiculopathy Lumbar core Referring Physician: Michelle Chin, Orthopedic Surgery, Encounter Date: 03/13/2025 Results Created Date Observation Date Name Description Value Unit Range Abnormal Flag Note LastModifiedBy Organization Detail LastModifiedTime 07/01/2007/01/2024 XR, foot, 3 or more view http:/ [email or web address] ?Encry pted=s hAaTro YD8dLq bEUv6g %2BXZw aYqtaq 0bqfl% 2Fg9IQ a4ajBk vP9nXo QUaueC m3YtLR FvZlgJ JJ8mAn HZtai 4s8956 AC0Kqa 3yEWKa nKiQtr Mw INTERFACE [facility] [address], [place], [address], 07/01/2024 15:51:59 07/01/20 24 07/01/2024 XR, foot, 3 or more view http:/ [email or web address] ?Encry pted=s hAaTro YD8dLq bEUv6g %2BXZw aYqtaq 0bqfl% 2Fg9IQ a4ajBk vP9nXo QUaueC m3YtLR FvZl J8Edgar HZta 1h4869 AC0Kqa 3yEWKa nKiQtr MwF INTERFACE [facility] [address], [place], [address], 07/01/2024 15:52:01 03/13/20 25 03/13/2025 XR, lumba r spine , 2 view http:/ [email or web address] ?Encry pted=s hAaTro YD8dLq bEUv6g %2BXZw aYqtaq 0bqfl% 2Fg9IQ a4ajBk vP9nXo QUaueC m3YtLR FvZlgJ JJ8mAn HZtai3 5q1769 AC0Kla H6MU6C vKiQtr MwF INTERFACE [facility] [address], [place], [address], 03/13/2025 08:35:15 03/13/20 25 03/13/2025 XR, lumba r spine , 2 view http:/ [email or web address] ?Encry pted=s hAaTro YD8dLq bEUv6g %2BXZw aYqtaq 0bqfl% 2Fg9IQ a4ajBk vP9nXo QUaueC m3YtLR FvZlgJ JJ8mAn HZtai3 1t4911 AC0Kla H6MU6C vKiQtr MwF INTERFACE [facility] [address], [place], [address], 03/13/2025 08:35:17 Result Notes Documentation Provider Name and Address Organization Details Recorded Time Xr, Foot, 3 Or More View : [email or web address]? Encrypted=guCgMtnKL8iDnhY Uv6g%1HNTnkYevog1reqr%2Fg 1ZUd4ojLuqW0fJaGTokeIq6Ht HVKlCdzGBL6xIkNBuiu28i386 4KR5Lxt7xPEYwzTjYsgQxG Not Available [facility] 07/01/2024 15:52: 00 Xr, Foot, 3 Or More View : [email or web address]? Encrypted=jnKiHrnOC0lHsmI Uv6g%5XGVlrQwgsc2cusv%2Fg 6NNe5znSzlY9cItSSdecHe9Hw PFArJppVMV1gPuTWksc34g936 6XL6Ykh3lELFssWiXwpVqN Not Available [facility] 07/01/2024 15:52: 02 Xr, Lumbar Spine, 2 View : [email or web address]? Encrypted=jfQxAvkBY4rLssO Uv6g%7ZZNidQspea6zffe%2Fg 9CAe8poAyxD1sKkNXkccOq0Rh EPGrUdeHMQ2vQrTUmjm92l830 6QW4VliN7PB6ItQePtgPuT [facility] Available [facility] 03/13/2025 08:35: 16 Xr, Lumbar Spine, 2 View : [email or web address] Encrypted=lfDdYegMO3eNjmM Uv6g%4BKFgvYtfso4idje%2Fg 0PKl3zuQxxM2kCeVDwafXx3Hb FRYpWfmFSC2tFyKPbpc62w163 1ZP3ZcqS3EZ1DaBsBwyUsY Not Available [facility] 03/13/2025 08:35: 18 Problems Name Problem SNOMED Code Status Onset Date Resolution Date Notes Provider Name and Address Organization Details Recorded Time No complaint s 202189317 Active Status: 'I'; Not Available [facility] 4 09:29:18 Fracture of acetabulu m 44002871 Active 2017 Problem Code: S32.421D ; Problem Code Type: ICD-10; Status: 'A'; Not Available [facility] 11:59:34 Impingeme nt syndrome of left shoulder region 029493430603 104 Active 2015 Problem Code: M75.42; Problem Code Type: ICD-10; Status: 'A'; [facility] Available [facility] 11:59:35 Closed fracture of posterior wall of right acetabulu m 596342207085 22082 Active 2017 Problem Code: S32.421A ; Problem Code Type: ICD-10; Status: 'A'; [facility] Available [facility] 4 11:59:35 Problem Notes None recorded. Medical Equipment None Reported. Allergies Allergen ID Allergen Name Allergen Category Reaction Reaction Severity Criticality Documentation Date Start Date Code Code System Note Provider Name and Address Organization Details Recorded Time 40406 Benadryl medicatio n Not available Not available Not available 12/03/2023201245 7 RxNorm Aller gyRea ction : 'Skin React ion, Nause a/Vom iting /Diar steffany' ; Anna laura [facility] 08:25:56 Medications Name Sig Start Date Stop Date Status Note LastModified by Organization Details LastModified Time Medrol (Clyde) 4 mg tablets in a dose pack take as directed 2024 active Not Available Not Available Not Avai lable amoxicillin 500 mg tablet TAKE 1 TABLET BY MOUTH EVERY 12 HOURS FOR 10 DAYS active Not Available Not Available No t Available oseltamivir 75 mg capsule TAKE 1 CAPSULE BY MOUTH TWICE A DAY FOR 5 DAYS 03/13 completed Not Available Not Available Not Available lisinopril 10 mg tablet TAKE 1 TABLET BY MOUTH DAILY active Not Available Not Available No t Available betamethaso ne dipropionat e 0.05 % topical cream APPLY TO AFFECTED AREA TWICE A DAY active Not Available Not Available No t Available raloxifene 60 mg tablet TAKE 1 TABLET BY MOUTH EVERY DAY active Not Available Not Available No t Available oxycodone HCl-oxycodo ne-ASA 1-2 Q 4-[address] WHILE ON THIS MEDICATIO N 03/13 completed Statu s: 'Curr ent'; Not Available Not Available Not Available Vagifem 10 mcg vaginal tablet INSERT 1 TABLET VAGINALLY TWICE WEEKLY active Not Available Not Available No t Available Vitals Date Recorded Body height Body mass index (BMI) Body weight Provider Name and Address Organization Details Last Updated DateTime 03/13/2025 157.48 cm 26.5 kg/m2 85993.89 g Anna Gates [facility] 03/13/2025 08:25:46 Date Recorded Body height Body mass index (BMI) Body weight Provider Name and Address Organization Details Last Updated DateTime 07/01/2024 157.48 cm 24.1 kg/m2 33394.19 g Carmen Santiago [facility] 07/01/2024 16:07:29 Social History None recorded. Functional Status None recorded. Mental Status None recorded. Family History Nothing Reported. Medical History No medical history recorded. Gynecological HistoryNo gynecological history recorded. Obstetrics History GPAL:G 0 P 0 0 0 0 Past Encounters Encounter ID Performer Location Encounter Start Date Encounter Closed Date Diagnosis/Indication Diagnosis SNOMED-CT Code Diagnosis ICD10 Code Diagnosis Note [id number] Yasmeen Araujo PA-C [address] [place] [address] 07/01/2024 15:24:41 07/23/2024 15:39:38 Pain in left foot [id number] 35890 M79.486 [id number] JEREMY CARDOSO [address] [place] [address] 03/13/2025 08:16:08 03/18/2025 10:36:09 Low back pain 287855805 M54.50 Lumbar radiculopathy 128 259505 M54.16 Health Concerns Section Related Observation LastModified by Organization Detai ls LastModified Time None Recorded Concern Status LastModified by Organization Details LastModified Time None Recorded Advance Directives Directive None Recorded Payers Insurance Date Sequence Insurance Name Policy Number Policy Brand Covered Member ID Brand Member ID Guarantor Name 03/18/2025 1 [facility] IN[facility]MNITY [facility] (PPO) [id number] 1 Janeth V Genaro [id number] Janeth V Genaro Notes Date Note Type Note Provider Name and Address Organization Details Recorded Time 07/01/2024 text/html I am seeing this patient under the supervision of Dr. Mendez who was available but who did not see the patient. HPI: Patient is a 69-year-old female presenting to the office today for evaluation of left foot toe deformity. She feels that the space between her second and third toe has been widening lately. Reports this began a few months ago after a hike. Reports she did notice some bruising at the dorsal aspect of the forefoot around the drain between the second and third toe. Denies any pain. She is here today for orthopedic consultation. Past family, medical, social history and review of systems has been reviewed, updated and is located in the patient's chart. Examination: The patient is well appearing, alert and oriented x3 and in no acute distress. Gait is non-antalgic. On inspection of the Left foot and ankle, there is some lateral drift of the third toe at the MTP joint. Otherwise no edema, erythema, ecchymosis or deformity. Skin is intact, no open wounds. Nontender about the foot and ankle. Range of motion is full and strength is intact. Neurovascularly intact distally. No gross instability. Calf is supple, nontender. Achilles tendon nontender, no palpable defect noted. Peripheral, vascular, lymphatic examination, skin, neurological, coordination, reflexes, sensation are within normal limits. X-rays ordered, obtained and reviewed independently today at [facility]: Three-view x-rays of the left foot reveals some valgus alignment of the third toe at the MTP joint as well as the 4th toe . No acute fractures or dislocations noted. Impression: Left foot third toe valgus alignment Plan: I discussed my findings and the situation with the patient. We discussed potential treatment options at this time including conservative and surgical treatement options and risks and benefits of each including surgery details and recovery time. Given the fact that she does not have any pain or swelling associated with her symptoms, I recommended just ninoska taping her second and third toe together. She will monitor things and follow-up with us on an as-needed basis. If she begins having more pain in her things worsen or change, or if the deformity bothers her and she would like to get it surgically fixed she will call the office for possible MRI vs referral to one of our foot/ankle surgeons. Patient agrees with this plan. All questions were answered. Speech recognition speech writer software was used to create portions of this document. An attempt at proofreading has been made to minimize errors. Please call for corrections. Yasmeen Araujo PA-C [address] [place] [address] [address] [facility], [place], [address], [facility] 07/01/2024 17:11:58 03/13/2025 text/html I am seeing the patient today under the supervision of Dr. Tirado who was available but who did not see the patient. HPI: Patient is a pleasant 70-year-old female who presents for evaluation of ongoing low back pain. Patient reports radiating leg pain, paresthesias that have been intermittent for the last few months. Sitting and laying down worse than when standing and walking. Patient states that pain sometimes alleviates after walking for longer distances. Pain is mild to moderate. Denies bowel or bladder dysfunction. TREATMENTS: As noted in HPI Past family, medical, social history and review of systems has been reviewed, updated and signed by me and is located in the patient s chart. Examination: The patient is well appearing, alert and oriented x3 and in no acute distress. Gait is not antalgic. Patient is able to transition from seated to standing position without difficulty.Inspecti on of the spine reveals no step off, deformity or overlying skin changes or atrophy.The spine is nontender over the paravertebral musculature. Nontender over TFL, greater trochanters or posterior hip musculature.Range of motion of the Lumbar spine is 60% of normal.Range of motion of the hips and knees is full with discomfort noted straight leg raise test on the left lower extremity.Strength in lower extremity myotomes 5/5 bilaterally.Sensati on intact.Re exes normal 2+at knee and ankle. No ankle clonus X-rays ordered, obtained and reviewed at [facility], 2 views of the lumbar spine reveals no fractures, instability or bony lesions. Degenerative disc disease noted. Impression/Plan: Lumbar radiculitis discussed the nature of the problem the patient in office today. We discussed conservative treatment measures at this time with Medrol Dosepak and physical therapy for lumbar and core stability. Patient is unable to take NSAIDs due to blood pressure medications that she is on at this time. She will follow-up in our office in 8 to 10 weeks with one of my spine colleagues. If no significant alleviation of symptoms at that time would move forward with an MRI for further evaluation. Patient expressed understanding agree with plan all questions asked and answered. [facility] speech recognition speech writer software was used to create portions of this document. An attempt at proofreading has been made to minimize errors. Please call for corrections. MICHELLE CHIN PA-C [address] [facility], [place], [address], [facility] [place] [facility] 03/13/2025 08:57:18 OBGyn Episode No OBEpisode recorded.
== END 2025-03-19 14:41 | disposition home or self-care (01) ==
LOC: HO.HMCSH 14:10
PROVIDERS: PCP Physician Assistant Medical; Visit Provider Physician Assistant Medical
DX: R51.9 Headache, unspecified (principal); R10.10 Upper abdominal pain, unspecified; R11.0 Nausea; R50.9 Fever, unspecified; K59.00 Constipation, unspecified

== ENCOUNTER 2025-03-19 14:10 | Outpatient (REF) | payer OTHER, SELFPAY ==
[2025-03-19 16:42] LABS: Hemoglobin 15.2 g/dl (12.0-16.0); Mean Corpuscular HGB Conc 33.8 g/dl (31.0-35.0); Mean Corpuscular Hemoglobin 32.3 pg (27.0-33.0); Mean Corpuscular Volume 95.7 fL (80.0-98.0); Mean Platelet Volume 11.2 fL (9.4-12.3); Platelet Count 99 X10*3/uL (160-400); Red Cell Distribution Width 13.7 % (11.0-16.0); White Blood Count 3.3 X10*3/uL (4.8-10.8)
[2025-03-19 16:47] LABS: Estimated Average Glucose 103 mg/dL; Hemoglobin A1C 129.1914 umol/L; Hemoglobin A1c % 5.2 % (<6.0)
[2025-03-19 17:02] LABS: Influenza A PCR NEGATIVE (Negative); Influenza B PCR NEGATIVE (Negative); Resp Syncy Virus RNA Qual PCR NEGATIVE (Negative); SARS COV2 PCR INHOUSE NEGATIVE (Negative)
[2025-03-19 17:04] LABS: Alanine Aminotransferase 27 U/L (0-31); Albumin Level 4.1 g/dL (3.5-5.0); Alkaline Phosphatase 55 U/L (39-117); Anion Gap 16 (12-20); Aspartate Amino Transferase 50 U/L (5-31); Bilirubin Direct 0.2 mg/dL (0.0-0.5); Bilirubin Total 0.4 mg/dL (0.0-1.0); Blood Urea Nitrogen 22 mg/dL (9-16); C Reactive Protein 20.76 mg/dL (< or = 0.50); Calcium 9.3 mg/dL (8.4-10.2); Carbon Dioxide 26 mmol/L (22-29); Chloride 101 mmol/L (96-108); Cholesterol 208 mg/dL (<200); Estimated Glomerular Filt Rate > 60; Glucose Random 113 mg/dL (60-115); HDL Cholesterol 58 mg/dL (>40); LDL Cholesterol Calculated 118 mg/dL (<100); Lipase 28 U/L (8-78); Magnesium 2.3 mg/dL (1.6-2.6); Potassium 4.2 mmol/L (3.3-5.1); Sodium 139 mmol/L (135-145); Total Protein 6.8 g/dL (6.5-8.0); Triglycerides 162 mg/dL (<150)
[2025-03-19 17:17] LABS: TSH reflex Free T4 1.35 uIU/mL (0.32-4.0); Vitamin D 25-OH Total 31.7 ng/mL (>30)
[2025-03-19 17:25] LABS: Band Neutrophils Percent 9 % (3-5); Basophils Percent Manual 1 % (0-2); Lymphocytes Percent Manual 1 % (20-40); Metamyelocytes Percent 1 %; Monocytes Percent Manual 1 % (2-11); Neutrophils Absolute Manual 3.2 X10*3/uL (2.0-8.3); Neutrophils Percent Manual 87 % (45-73)
[2025-03-19 17:27] LABS: Macrocytosis 1+ (5-14) /OIF; Platelet Estimate DECREASED (NORMAL); Platelet Morphology Comment NORMAL; RBC Morphology NOTED
[2025-03-19 17:32] LABS: Vitamin B12 639 pg/mL (200-900)
[2025-03-19 17:52] LABS: Erythrocyte Sedimentation Rate 9 MM/HR (0-20)
[2025-03-19 21:38] LABS: Amylase 60 U/L (28-100)
[2025-03-23 17:38] LABS: Zinc 40 mcg/dL (60-130)
== END 2025-03-19 14:11 | disposition home or self-care (01) ==
LOC: HO.LAB 14:10
PROVIDERS: PCP Physician Assistant Medical; Visit Provider Physician Assistant Medical
DX: R10.10 Upper abdominal pain, unspecified (principal); R09.89 Other specified symptoms and signs involving the circulatory and respiratory systems; R51.9 Headache, unspecified; R50.9 Fever, unspecified; R11.0 Nausea; K59.00 Constipation, unspecified; Z13.1 Encounter for screening for diabetes mellitus; Z13.6 Encounter for screening for cardiovascular disorders; Z00.00 Encounter for general adult medical examination without abnormal findings
CPT/HCPCS: 0241U; 80053; 80061; 82150; 82248; 82306; 82607; 82746; 83036; 83690; 83735; 84425; 84443; 84590; 84630; 85007; 85025; 85027; 85652; 86140; 96127

== ENCOUNTER 2025-03-24 14:15 | Outpatient (AMB) | payer OTHER, SELFPAY ==
--- NOTE | 2025-03-24 14:03 | A.OFFPC_ITS ---
Vital Signs 03/24/25 14:20 Height 5 ft 2 in Weight 136 lb BMI 24.9 BP 110/70 Blood Pressure Location Lt brachial Intake Visit Reasons: Nausea Allergies No Known Allergies (No Known Allergies*) Allergy (Verified 03/24/25 14:45) Medication List - Last Reconciled 03/24/25 by Felipa Milian PA-C doxycycline hyclate 100 mg PO BID famotidine (Pepcid AC Maximum Strength) 20 mg PO BID ibuprofen 800 mg PO Q8H lisinopril 10 mg PO DAILY ondansetron 4 mg PO Q8H PRN raloxifene (Evista) 60 mg PO DAILY Tobacco use date assessed: 03/19/25 Dental Screening Dental Screen Date: 01/20/25 HPI Nausea HPI Details The patient is a 70-year-old female presenting with a follow-up after an emergency room visit for symptoms including headaches, nausea, vomiting, and upper abdominal pain. 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 She reports per sistent nausea and decreased appetite, particularly exacerbated by the doxycycline, despite attempts to take it with food. The patient also reports a history of leukopenia and thrombocytopenia, along with elevated CRP and AST levels noted during her hospital visit. She denies any diarrhea and reports her last bowel movement was three days ago, attributing this to her reduced food intake. The patient has been experiencing zinc deficiency, likely due to dietary factors, with a zinc level of 40, which should be 60. She has been advised to consume zinc-rich foods such as oysters, beef, pork, and lentils. We also had a discussion about the patient's elevated triglyceride, cholesterol and LDL and she reported she told the lab that she was not fasting and not to obtain these labs therefore she would like to have these repeated fasting. Therefore ordered at this time. [facility] Medical History (Updated 03/24/25 @ 14:49 by Felipa Milian PA-C) Zinc deficiency Thrombocytopenia Leukopenia Anaplasmosis Upper abdominal pain Cough Insomnia Alcohol use disorder Head pain Internal hemorrhoid Diverticulosis Hypertension History of hip fracture Fibrocystic breast disease Osteopenia Surgical History Hx of colonoscopy (~03/11/21) H/O dilation and curettage H/O breast biopsy Hx of arthroscopy of shoulder Hx of tonsillectomy History of open reduction and internal fixation (ORIF) procedure Family History Mother Heart disease Diabetes Father Heart attack Social History Housing: House Alcohol intake: current Alcohol intake frequency: a few times a week Alcohol type: wine Patient Tobacco Use Status: Never used Tobacco Second Hand Smoke Exposure: Yes service: No Current occupational status: employed Cognitive needs: No Hearing needs: No Vision needs: Yes (rx glasses) Questionnaire PHQ-9 Over the last 2 weeks, how often have you been bothered by any of the following problems? 1. Little interest or pleasure in doing things: not at all 2. Feeling down, depressed, or hopeless: not at all 3. Trouble falling or staying asleep, or sleeping too much: not at all 4. Feeling tired or having little energy: not at all 5. Poor appetite or overeating: not at all 6. Feeling bad about yourself - or that you are a failure or have let yourself or your family down: not at all 7. Trouble concentrating on things, such as reading the newspaper or watching television: not at all 8. Moving or speaking so slowly that other people could have noticed. Or the opposite - being so fidgety or restless that you have been moving around a lot more than usual: not at all 9. Thoughts that you would be better off or of hurting yourself in some way: not at all Total score: 0 Depression Screening Interpretation: Negative Depression Screening Done: Yes 92931 - PHQ-9 Billing: Yes Source: Developed by Drs. Jin Nails, Tran Scott, Mello Li and colleagues, with an educational delmy from [employer]. Thrive Questionnaire Date Thrive assessed: 01/20/25 I am a: Patient What is your living situation today?: I have a steady place to live Within the past 12 months, did the food you bought not last and you didn't have the money to get more?: Never true Within the past 12 months, did you worry whether your food would run out before you got money to buy more?: Never true Do you have trouble paying for medicines?: No Do you have trouble getting transportation to medical appointments?: No Do you have trouble paying your heating and electricity bill?: No Do you have trouble taking care of your child, family member or friend?: No Do you have trouble with day-to-day activities such as bathing, preparing meals, shopping, managing finances, etc.?: No Are you currently unemployed and looking for a job?: No Are you interested in more education?: No Please select the resources that you would like help with: None THRIVE Score: 0 AUDIT C Alcohol Use Questionnaire (AUDIT-C) 1. How often do you have a drink containing alcohol?: 2-3 times a week 2. How many drinks containing alcohol do you have on a typical day when you are drinking?: 1 or 2 3. How often do you have six or more drinks on one occasion?: Never Total Score: 3 Score Reviewed/Action Taken: No ELVER-7 AMB Questionnaire ELVER-7 Date ELVER - 7 assessed: 01/20/25 Feeling nervous, anxious, or on edge: 0 = Not at all Not being able to stop or control worryin = Not at all Worrying too much about different things: 0 = Not at all Trouble relaxin = Not at all Being so restless that it is hard to sit still: 0 = Not at all Becoming easily annoyed or irritable: 0 = Not at all Feeling afraid as if something awful might happen: 0 = Not at all Total ELVER-7 score (0-4 normal; 5-9 mild; 10-14 moderate; 15-21 severe): 0 Source: Developed by Drs. Jin Nails, Tran Scott, Mello Li and colleagues, with an educational delmy from [employer]. ELVER-7 Assessment Billing ELVER-7 Assessment Tool: ELVER-7 Assessment 17169 Review of Systems Const Details: - General: Denies fever, reports decreased appetite. - Gastrointestinal: Reports nausea, denies vomiting and diarrhea, reports upper abdominal pain. - Neurological: Reports resolved headaches. Physical exam (Primary Care) Vital Signs: Last Vital Signs BP 110/70 03/24/25 14:20 BMI result Body Mass Index 24.9 Tobacco/Smoking Status: Tobacco use Status Tobacco use date assessed 03/19/25 03/24/25 14:04 Patient Tobacco Use Status Never used Tobacco 03/24/25 14:04 PHQ-9: PHQ-9 Score PHQ-9: Total score 0 03/24/25 14:21 Depression Screening Interpretation: Negative Thrive Assessment: Date of Thrive Assessment Date Thrive assessed 01/20/25 03/24/25 14:04 Telehealth Telehealth Telehealth Platform: Telephone Location of provider rendering services: practice address Location of patient: address on file Patient Identification confirmed using: Name, : Yes Telehealth method: voice only Patient verbally consented to treatment: Yes Patient verbally consented to billing insurance company: Yes Patient informed of any privacy concerns related to visit: Yes Minutes spent on Phone/Video with Pt.: 15 Coding Level of Care Code Tele New Pt Level 4 (04054) Complex EM visit Add On G2211 Diagnoses Anaplasmosis A77.49 Leukopenia D72.819 Thrombocytopenia D69.6 Zinc deficiency E60 Additional Codes ELVER-7 Assessment Billing - ELVER-7 Assessment Tool: ELVER-7 Assessment 76237 ([id number]) PHQ-9 - 08453 - PHQ-9 Billing: Yes ([id number]) Assessment & Plan Assessment & Plan (1) Anaplasmosis: Code(s): A77.49 - Other ehrlichiosis Category: Medical Plan: The patient is currently being treated with doxycycline for anaplasmosis, which was diagnosed following her emergency room visit. She is advised to continue taking doxycycline with food to minimize gastrointestinal discomfort and to use Pepcid to help manage nausea. (2) Leukopenia: Code(s): D72.819 - Decreased white blood cell count, unspecified Category: Medical Plan: Leukopenia was noted during the hospital visit, and the patient is advised to monitor her symptoms and follow up with her healthcare provider if there are any changes. Will re-evaluate in the next few months. (3) Thrombocytopenia: Code(s): D69.6 - Thrombocytopenia, unspecified Category: Medical Plan: Thrombocytopenia was identified during the hospital visit, and the patient should continue to monitor for any signs of bleeding or bruising and report these to her healthcare provider. Will re-evaluate in the next few months. (4) Zinc deficiency: Code(s): E60 - Dietary zinc deficiency Category: Medical Plan: The patient is advised to increase her intake of zinc-rich foods such as oysters, beef, and lentils to address her zinc deficiency. Plan Plan Patient was informed and verbally consented to the use of an ambient scribe for clinic note documentation during this visit. 1. Anaplasmosis The patient is currently being treated with doxycycline for anaplasmosis, which was diagnosed following her emergency room visit. She is advised to continue taking doxycycline with food to minimize gastrointestinal discomfort and to use Pepcid to help manage nausea. 2. Leukopenia Leukopenia was noted during the hospital visit, and the patient is advised to monitor her symptoms and follow up with her healthcare provider if there are any changes. 3. Thrombocytopenia Thrombocytopenia was identified during the hospital visit, and the patient should continue to monitor for any signs of bleeding or bruising and report these to her healthcare provider. 4. Zinc Deficiency The patient is advised to increase her intake of zinc-rich foods such as oyst ers, beef, and lentils to address her zinc deficiency. During the visit, we discussed the patient's current treatment with doxycycline for anaplasmosis and the associated gastrointestinal side effects. I recommended taking Pepcid to alleviate nausea and advised on dietary adjustments to address zinc deficiency. We also reviewed the importance of monitoring symptoms related to leukopenia and thrombocytopenia and discussed follow-up care. Orders: Orders Lipid Panel Today Z00.00 - Encounter for general adult medical examination without abnormal findings Medications: New famotidine (Pepcid AC Maximum Strength) 20 mg PO BID 60 tabs 0RF Patient Instructions: - Continue taking doxycycline with food to reduce stomach upset. - Take Pepcid twice daily to help with nausea. - Monitor for any signs of bleeding or bruising and report to your healthcare provider. - Increase intake of zinc-rich foods such as oysters, beef, and lentils. - Follow up with your healthcare provider if symptoms persist or worsen.
[2025-03-24 14:20] VITALS: BP 110/70; BMI 24.9
--- OUTSIDE RECORDS SUMMARY | 2025-03-24 17:22 | XMS_ITS | Data Portability ---
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 Plan of Treatment Reminders Order Date Submit Date Provider Last Modified By Organization Details Last Modified Time Details Appointments RECHECK 15 2024 10:15A Lux Boswell CNP Not available Not available Not available NEW PROBLEM 2024 02:15P Lux Zapien PA-C Not available Not available Not available Lab None recorded. Referral physical therapist referral - Lumbar core 2024 025 [email or web address] Not available 03/18/2025 10:36:09 Procedures None recorded. Surgeries None recorded. Imaging XR, lumbar spine, 2 view - 2v Lspine. room 304 2024 025 [email or web address] [facility] Office, [address], [place], [address], 03/18/2025 10:36:09 XR, foot, 3 or more view - new pt 3 views left foot wb rm 104 2023 024 [email or web address] [facility], [address], [place], [address], 07/23/2024 15:39:38 Medication Orders Medrol (Clyde) 4 mg tablets in a dose pack 2024 025 [email or web address] [facility]/Pharmacy #[id number], [address] [place], [address], 03/13/2025 08:53:23 Patient TargetsNo targets recorded. Patient InstructionsNo instructions recorded. Reason for Referral Physical Therapist Referral for Lumbar radiculopathy Lumbar core Referring Physician: Michelle Chin, Orthopedic Surgery, Encounter Date: 03/13/2025 Results Created Date Observation Date Name Description Value Unit Range Abnormal Flag Note LastModifiedBy Organization Detail LastModifiedTime 07/01/2007/01/2024 XR, foot, 3 or more view http:/ [email or web address] ?Encry pted=s hAaTro YD8dLq bEUv6g %2BXZw aYqtaq 0bqfl% 2Fg9IQ a4ajBk vP9nXo QUaueC m3YtLR FvZlgJ JJ8mAn HZtai3 4p0100 AC0Kqa 3yEWKa nKiQtr MwF INTERFACE [facility] [address], [place], [address], 07/01/2024 15:51:59 07/01/20 24 07/01/2024 XR, foot, 3 or more view http:/ [email or web address] ?Encry pted=s hAaTro YD8dLq bEUv6g %2BXZw aYqtaq 0bqfl% 2Fg9IQ a4ajBk vP9nXo QUaueC m3YtLR FvZlgJ JJ8mAn HZtai3 7b1383 AC0Kqa 3yEWKa nKiQtr MwF INTERFACE [facility] [address], [place], [address], 07/01/2024 15:52:01 03/13/20 25 03/13/2025 XR, lumba r spine , 2 view [email or web address]:/ [email or web address] ?Encry pted=s hAaTro YD8dLq bEUv6g %2BXZw aYqtaq 0bqfl% 2Fg9IQ a4ajBk vP9nXo QUaueC m3YtLR FvZlgJ JJ8mAn HZtai3 9j1623 AC0Kla H6MU6C vKiQtr MwF INTERFACE [facility] [address], [place], [address], 03/13/2025 08:35:15 03/13/20 25 03/13/2025 XR, lumba r spine , 2 view http:/ [email or web address] ?Encry pted=s hAaTro YD8dLq bEUv6g %2BXZw aYqtaq 0bqfl% 2Fg9IQ a4ajBk vP9nXo QUaueC m3YtLR FvZlgJ JJ8mAn HZtai3 0o8447 AC0Kla H6MU6C vKiQtr MwF INTERFACE [facility] [address], [place], [address], 03/13/2025 08:35:17 Result Notes Documentation Provider Name and Address Organization Details Recorded Time Xr, Foot, 3 Or More View : [email or web address]? Encrypted=ozZdStkAW2sPdnE Uv6g%7ZFSbrOqhot4kaln%2Fg 7BEa0tvDbbN5pLlVLfdlXm8Qt OCZsOxoDGS6bPpTVtjq43t150 3OZ2Jgn7oRRUnzEaKvcUvN Not Available [facility] 07/01/2024 15:52: 00 Xr, Foot, 3 Or More View : [email or web address]? Encrypted=ydTzBfaIQ9oKprV Uv6g%0VZGwmAvabo4pxvp%2Fg 2NRd5uuRxkG9cGmJIdgwEn4Kt JIBkMgxVRH6wSsIWyvr51b575 3UG8Yww9oUOClzCqNrwPpL Not Available [facility] 07/01/2024 15:52: 02 Xr, Lumbar Spine, 2 View : [email or web address]? Encrypted=plYuNkzTB7bUzzY Uv6g%3IHLyhEjvrn9besv%2Fg 5GYf4azOawK8zMvBNnavMm5Qt SKKhUekXOG5zDpFKwus96b520 4ZQ9QccE8SG5YeUfYkiCjE Not Available [facility] 03/13/2025 08:35: 16 Xr, Lumbar Spine, 2 View : [email or web address]? Encrypted=seWvAodMA5kNtnV Uv6g%5IISqyYsjic3meqj%2Fg 3JRp6prJayY4pToHAwfqKa2Hk KBEqLntERL0hZcDCkfj93q959 2VK0GepZ2KE9OoXvYmiTdN Not Available [facility] 03/13/2025 08:35: 18 Problems Name Problem SNOMED Code Status Onset Date Resolution Date Notes Provider Name and Address Organization Details Recorded Time No complaint s 983399498 Active Status: 'I'; Not Available [facility] 4 09:29:18 Fracture of acetabulu m 86035943 Active 2017 Problem Code: S32.421D ; Problem Code Type: ICD-10; Status: 'A'; Not Available [facility] 4 11:59:34 Impingeme nt syndrome of left shoulder region 353392441986 104 Active 2015 Problem Code: M75.42; Problem Code Type: ICD-10; Status: 'A'; Not Available [facility] 4 11:59:35 Closed fracture of posterior wall of right acetabulu m 330008265751 81698 Active 2017 Problem Code: S32.421A ; Problem Code Type: ICD-10; Status: 'A'; Not Available [facility] 4 11:59:35 Problem Notes None recorded. Medical Equipment None Reported. Allergies Allergen ID Allergen Name Allergen Category Reaction Reaction Severity Criticality Documentation Date Start Date Code Code System Note Provider Name and Address Organization Details Recorded Time 15996 Benadryl medicatio n Not available Not available Not available 12/03/2023201245 7 RxNorm Aller gyRea ction : 'Skin React ion, Nause a/Vom iting /Diar steffany' ; Anna laura [place] - [facility] 08:25:56 Medications Name Sig Start Date Stop Date Status Note LastModified by Organization Details LastModified Time acetaminoph en 500 mg tablet TAKE 2 TABLETS BY MOUTH EVERY 6 HOURS NEEDED FOR PAIN active Not Available Not Available No t Available amoxicillin 500 mg tablet TAKE 1 TABLET [...] Not Available Not Available No t Available methylpredn isolone 4 mg tablets in a dose pack TAKE 6 TABLETS ON DAY 1 DIRECTED ON PACKAGE AND DECREASE BY 1 TAB EACH DAY FOR A TOTAL OF 6 DAYS active Not Available Not Available No t Available ondansetron 4 mg disintegrat ing tablet TAKE ONE TABLET BY MOUTH EVERY 8 HOURS NEEDED FOR NAUSEA AN VOMITING active Not Available Not Available No t [...] Updated DateTime 03/13/2025 157.48 cm 26.5 kg/m2 58624.89 g Anna Gates MA [facility] 03/13/2025 08:25:46 Date Recorded Body height Body mass index (BMI) Body weight Provider Name and Address Organization Details Last Updated DateTime 07/01/2024 157.48 cm 24.1 kg/m2 04199.19 g Carmen Santiago [place] - [facility] 07/01/2024 16:07:29 Social History None recorded. Functional Status None recorded. Mental Status None recorded. Family History Nothing Reported. Medical History No medical history recorded. Gynecological HistoryNo gynecological history recorded. Obstetrics History GPAL:G 0 P 0 0 0 0 Past Encounters Encounter ID Performer Location Encounter Start Date Encounter Closed Date Diagnosis/Indication Diagnosis SNOMED-CT Code Diagnosis ICD10 Code Diagnosis Note [id number] Yasmeen Araujo PA-C [facility] [address] [place] [address] 07/01/2024 15:24:41 07/23/2024 15:39:38 Pain in left foot 0906152142 57589 M79.461 [id number] JEREMY CARDOSO [facility] [address] [place] [place] [address] 03/13/2025 08:16:08 03/18/2025 10:36:09 Low back pain 226530458 M54.50 Lumbar radiculopathy 128 059829 M54.16 Health Concerns Section Related Observation LastModified by Organization Detai ls LastModified Time None Recorded Concern Status LastModified by Organization Details LastModified Time None Recorded Advance Directives Directive None Recorded Payers Insurance Date Sequence Insurance Name Policy Number Policy Brand Covered Member ID Brand Member ID Guarantor Name 03/18/2025 1 [facility] [employer] [facility] (PPO) [id number] 1 Janethgisela Cerdaba [id number] Janeth Lam Notes Date Note Type Note Provider Name [...] ordered, obtained and reviewed independently today at [facility]: Three-view x-rays of the left foot reveals [...] plan. All questions were answered. Speech recognition mainframe programmer software was used to create portions of this document. An attempt at proofreading has been made to minimize errors. Please call for corrections. aYsmeen Araujo PA-C [address] [place] [address] [address], [place], [address], [facility] - [facility] 07/01/2024 17:11:58 03/13/2025 text/html [...] clonus X-rays ordered, obtained and reviewed at [facility], 2 views of the lumbar spine reveals [...] with plan all questions asked and answered. [employer] speech recognition mainframe programmer software was used to create portions of this document. An attempt at proofreading has been made to minimize errors. Please call for corrections. MICHELLE CHIN PA-C [address] [facility] [address], [place], [address], [facility] - [facility] 03/13/2025 08:57:18 OBGyn Episode No OBEpisode recorded.
== END 2025-03-24 14:43 | disposition home or self-care (01) ==
LOC: HO.HMCSH 14:15
PROVIDERS: PCP Physician Assistant Medical; Visit Provider Physician Assistant Medical
DX: A77.49 Other ehrlichiosis (principal); D72.819 Decreased white blood cell count, unspecified; D69.6 Thrombocytopenia, unspecified; E60 Dietary zinc deficiency

== ENCOUNTER → 2025-03-24 14:15 | Outpatient (BNVA) | payer OTHER, SELFPAY | PROVIDERS: PCP Physician Assistant Medical; Visit Provider Physician Assistant Medical | DX: E60 Dietary zinc deficiency (principal); A77.49 Other ehrlichiosis; R11.0 Nausea; D72.819 Decreased white blood cell count, unspecified; D69.6 Thrombocytopenia, unspecified | CPT/HCPCS: 96127 ==

== ENCOUNTER 2025-04-14 07:34 | Outpatient (REF) | payer OTHER, SELFPAY ==
--- OUTSIDE RECORDS SUMMARY | 2025-04-14 07:37 | XMS_ITS | Data Portability ---
Author Organization [facility] - 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 Surgeries None recorded. Imaging XR, lumbar spine, 2 view - 2v Lspine. room 304 2024 025 [email or web address] [facility] Office, [address], [place], [address], 03/18/2025 10:36:09 XR, foot, 3 or more view - new pt 3 views left foot wb rm 104 2023 024 [email or web address] [facility], [address], [place], [address], 07/23/2024 15:39:38 Medication Orders Medrol (Clyde) 4 mg tablets in a dose pack 2024 025 [email or web address] [facility][id number], [address] [place], [address], 03/13/2025 08:53:23 Patient TargetsNo targets recorded. Patient InstructionsNo instructions recorded. Reason for Referral Physical Therapist Referral for Lumbar radiculopathy Lumbar core Referring Physician: Michelle Chin, Orthopedic Surgery, Encounter Date: 03/13/2025 Results Created Date Observation Date Name Description Value Unit Range Abnormal Flag Note LastModifiedBy Organization Detail LastModifiedTime 07/01/2007/01/2024 XR, foot, 3 or more view [email or web address] ?Encry pted=s hAaTro YD8dLq bEUv6g %2BXZw aYqtaq 0bqfl% 2Fg9IQ a4ajBk vP9nXo QUaueC m3YtLR FvZlgJ JJ8mAn HZtai3 1z3535 AC0Kqa 3yEWKa nKiQtr MwF INTERFACE [facility] [address], [place], [address], 07/01/2024 15:51:59 07/01/20 24 07/01/2024 XR, foot, 3 or more view [email or web address]:/ [email or web address] ?Encry pted=s hAaTro YD8dLq bEUv6g %2BXZw aYqtaq 0bqfl% 2Fg9IQ a4ajBk vP9nXo QUaueC m3YtLR FvZlgJ JJ8mAn HZtai3 4y1674 AC0Kqa 3yEWKa nKiQtr MwF INTERFACE [facility] [address], [place], [address], 07/01/2024 15:52:01 03/13/20 25 03/13/2025 XR, lumba r spine , 2 view [email or web address]:/ [email or web address] ?Encry pted=s hAaTro YD8dLq bEUv6g %2BXZw aYqtaq 0bqfl% 2Fg9IQ a4ajBk vP9nXo QUaueC m3YtLR FvZlgJ JJ8mAn HZtai3 4j2030 AC0Kla H6MU6C vKiQtr MwF INTERFACE [facility] [address] [facility] [address], [place], [address], 03/13/2025 08:35:15 03/13/20 25 03/13/2025 XR, lumba r spine , 2 view [email or web address]:/ [email or web address] ?Encry pted=s hAaTro YD8dLq bEUv6g %2BXZw aYqtaq 0bqfl% 2Fg9IQ a4ajBk vP9nXo QUaueC m3YtLR FvZlgJ JJ8mAn HZtai3 2u5103 AC0Kla H6MU6C vKiQtr MwF INTERFACE [facility] [address] [facility] [address], [place], [address], 03/13/2025 08:35:17 Result Notes Documentation Provider Name and Address Organization Details Recorded Time Xr, Foot, 3 Or More View : [email or web address]? Encrypted=sgMxVwaQC1nZtpH Uv6g%2ZCVxxZcrue3viuv%2Fg 4UMt7yeUjqO3wCdQQubkBt6Nn AZEkIynNKS6wRvWJgbb21x789 7BS8Mhc7nSVOcmIrEtdAsE Not Available [facility] 07/01/2024 15:52: 00 Xr, Foot, 3 Or More View : [email or web address] Encrypted=mkKgDdzPC0uNiuH Uv6g%6KHQgbZlhrv6lblx%2Fg 2ZQb5erKluI1nHlQLgduMf4Bc TDZdFebIUO3xMlPVibj72n653 6HR2Ljs1gBWOpzKnPebPpH Not Available [facility] 07/01/2024 15:52: 02 Xr, Lumbar Spine, 2 View : [email or web address] Encrypted=alZlTcvKH6gTlpI Uv6g%1JEJslSrbnj4zqtc%2Fg 9TDr6ljNydY6aDvLUkpsWk4Vw SGKsRpuMXP9tZlNLfye93v991 4DN8GkgR1GJ0ErOaFtzTaU Not Available [facility] 03/13/2025 08:35: 16 Xr, Lumbar Spine, 2 View : [email or web address] Encrypted=wrNwDffDT3dBmgW Uv6g%8ALZctWhcxq2ygcy%2Fg 1UNr1dkBkqB5kKrNDgogUe8Bh WIMyJmjWWN2fYwWQnwb13y806 4QF2DbvY9GS8HsHuDdqOaQ Not Available [facility] 03/13/2025 08:35: 18 Problems Name Problem SNOMED Code Status Onset Date Resolution Date Notes Provider Name and Address Organization Details Recorded Time No complaint s 705908967 Active Status: 'I'; Not Available [facility] 4 09:29:18 Fracture of acetabulu m 89004109 Active 2017 Problem Code: S32.421D ; Problem Code Type: ICD-10; Status: 'A'; Not Available [facility] 4 11:59:34 Impingeme nt syndrome of left shoulder region 619146962362 104 Active 2015 Problem Code: M75.42; Problem Code Type: ICD-10; Status: 'A'; Not Available [facility] 4 11:59:35 Closed fracture of posterior wall of right acetabulu m 412183854596 91216 Active 2017 Problem Code: S32.421A ; Problem Code Type: ICD-10; Status: 'A'; Not Available [facility] 4 11:59:35 Problem Notes None recorded. Medical Equipment None Reported. Allergies Allergen ID Allergen Name Allergen Category Reaction Reaction Severity Criticality Documentation Date Start Date Code Code System Note Provider Name and Address Organization Details Recorded Time 22026 Benadryl medicatio n Not available Not available Not available 12/03/2023201245 7 RxNorm Aller gyRea ction : 'Skin React ion, Nause a/Vom iting /Diar steffany' ; Anna laura [place] - [facility] 5 08:25:56 Medications Name Sig Start Date Stop Date Status Note LastModified by Organization Details LastModified Time acetaminoph en 500 mg tablet TAKE 2 TABLETS BY MOUTH EVERY 6 HOURS NEEDED FOR PAIN active Not Available Not Available No t Available amoxicillin 500 mg tablet TAKE 1 TABLET BY MOUTH EVERY 12 HOURS FOR 10 DAYS active Not Available Not Available No t Available famotidine 20 mg tablet TAKE 1 TABLET BY MOUTH TWICE A DAY active Not Available Not Available No t Available doxycycline monohydrate 100 mg capsule TAKE 1 CAPSULE BY MOUTH TWICE A DAY FOR 2 WEEKS active Not Available Not Available No t [...] Not Available Not Available No t Available metoclopram joy 10 mg tablet TAKE 1 TABLET (10 MG TOTAL) BY MOUTH 4 (FOUR) TIMES A DAY NEEDED FOR NAUSEA OR VOMITING. active Not Available Not Available No t [...] Updated DateTime 03/13/2025 157.48 cm 26.5 kg/m2 56052.89 g Anna Gates [facility] 03/13/2025 08:25:46 Date Recorded Body height Body mass index (BMI) Body weight Provider Name and Address Organization Details Last Updated DateTime 07/01/2024 157.48 cm 24.1 kg/m2 86950.19 g Carmen Morrowgo [facility] 07/01/2024 16:07:29 Social History None recorded. Functional Status None recorded. Mental Status None recorded. Family History Nothing Reported. Medical History No medical history recorded. Gynecological HistoryNo gynecological history recorded. Obstetrics History GPAL:G 0 P 0 0 0 0 Past Encounters Encounter ID Performer Location Encounter Start Date Encounter Closed Date Diagnosis/Indication Diagnosis SNOMED-CT Code Diagnosis ICD10 Code Diagnosis Note [id number] Yasmeen Araujo PA-C [facility] [address] [place] [address] 07/01/2024 15:24:41 07/23/2024 15:39:38 Pain in left foot [id number] 75766 M79.816 [id number] MICHELLE CHIN PA-C [facility] [address] [place] [address] 03/13/2025 08:16:08 03/18/2025 10:36:09 Low back pain 172469355 M54.50 Lumbar radiculopathy 128 770792 M54.16 Health Concerns Section Related Observation LastModified by Organization Detai ls LastModified Time None Recorded Concern Status LastModified by Organization Details LastModified Time None Recorded Advance Directives Directive None Recorded Payers Insurance Date Sequence Insurance Name Policy Number Policy Brand Covered Member ID Brand Member ID Guarantor Name 03/18/2025 1 [facility] INDEMNITY PLAN (PPO) [id number] 1 Janeth Lam [id number] Janeth Lam Notes Date Note Type Note [...] ordered, obtained and reviewed independently today at [facility]: Three-view x-rays of the left [...] plan. All questions were answered. Speech recognition hemodialysis charge nurse software was used to create portions of this document. An attempt at proofreading has been made to minimize errors. Please call for corrections. Yasmeen Araujo PA-C [address] [place] [address] [address], [place], [address], [facility] - [facility] 07/01/2024 17:11:58 03/13/2025 text/html [...] clonus X-rays ordered, obtained and reviewed at [facility], 2 views of the lumbar spine reveals [...] with plan all questions asked and answered. [employer] speech recognition hemodialysis charge nurse software was used to create portions of this document. An attempt at proofreading has been made to minimize errors. Please call for corrections. MICHELLE CHIN PA-C [address] [facility] [address], [place], [address], [facility] - [facility] 03/13/2025 08:57:18 OBGyn Episode No OBEpisode recorded.
[2025-04-14 09:12] LABS: Cholesterol 212 mg/dL (<200); HDL Cholesterol 40 mg/dL (>40); Triglycerides 97 mg/dL (<150)
== END 2025-04-14 07:35 | disposition home or self-care (01) ==
LOC: HO.LAB 07:34
PROVIDERS: PCP Internal Medicine; Visit Provider Physician Assistant Medical
DX: Z00.00 Encounter for general adult medical examination without abnormal findings (principal)
CPT/HCPCS: 36415; 80061; 84425; 84590

== ENCOUNTER 2025-04-17 14:01 | Outpatient (AMB) | payer OTHER, SELFPAY ==
[2025-04-17 13:57] VITALS: BP 133/63; PULSE 83; RESP 16; TEMP 36.9; O2SAT 97; BMI 23.6
--- NOTE | 2025-04-17 13:57 | MHC.PC.OV ---
Vital Signs 04/17/25 13:57 Height 5 ft 2 in Weight 129 lb BMI 23.6 BP 133/63 Blood Pressure Location Rt brachial Position Sitting Respiration 16 Pulse 83 Pulse Source Pulse Oximeter Temp 98.4 F Temp Source Temporal Artery Scan Pulse Oximetry (%) 97 Oxygen Delivery Method Room Air Intake Visit Reasons: 3 month follow up It Applications Analyst Required: No Accompanied by: Self / Same As Patient Allergies No Known Allergies (No Known Allergies*) Allergy (Verified 04/17/25 14:15) Medication List - Last Reconciled 04/17/25 by Felipa Milian PA-C acetaminophen 500 mg PO Q6H PRN famotidine (Pepcid AC Maximum Strength) 20 mg PO BID 90 days lisinopril 10 mg PO DAILY raloxifene (Evista) 60 mg PO DAILY Tobacco use date assessed: 03/19/25 Fall risk assessment: No Falls in past year Last assessed Fall Risk: 04/17/25 Dental Screening Dental Screen Date: 01/20/25 Did you have a dental visit in the last 12 months?: Yes Did you have a dental problem in the last 6 months where you did not have access to dental care?: No Was dental information given to patient?: Patient has dentist HPI 3 month follow up HPI Details The patient is a 70-year-old female presenting with follow-up for blood pressure management and evaluation of gastrointestinal symptoms. The patient has a history of essential hypertension, managed with lisinopril, which initially caused a dry cough that has since resolved. Her blood pressure is currently well-controlled at 133/63 mmHg. She reports gastrointestinal symptoms, including abdominal cramping and flatulence, attributed to lactose intolerance. 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 The patient has paraformis syndrome, causing buttock and leg pain, managed with physical therapy and acetaminophen. She also has hyperlipidemia, with cholesterol at 212 mg/dL, and is advised dietary modifications to manage this condition. Social History - Exercise: Previously active with skiing and hiking, currently undergoing physical therapy for paraformis syndrome. - Diet: Avoids dairy due to lactose intolerance, consumes lactase supplements, and is advised to reduce egg intake for cholesterol management. [facility] Medical History (Updated 04/17/25 @ 14:47 by Felipa Milian PA-C) Piriformis syndrome Lactose intolerance Excessive gas Abdominal cramping Pure hypercholesterolemia, unspecified Hyperlipidemia Zinc deficiency Thrombocytopenia Leukopenia Anaplasmosis Upper abdominal pain Cough Insomnia Alcohol use disorder Head pain Internal hemorrhoid Diverticulosis Hypertension History of hip fracture Fibrocystic breast disease Osteopenia Surgical History Hx of colonoscopy (~03/11/21) H/O dilation and curettage H/O breast biopsy Hx of arthroscopy of shoulder Hx of tonsillectomy History of open reduction and internal fixation (ORIF) procedure Family History Mother Heart disease Diabetes Father Heart attack Social History Housing: House Alcohol intake: current Alcohol intake frequency: a few times a week Alcohol type: wine Patient Tobacco Use Status: Never used Tobacco Second Hand Smoke Exposure: Yes service: No Current occupational status: employed Cognitive needs: No Hearing needs: No Vision needs: Yes (rx glasses) Questionnaire PHQ-9 Over the last 2 weeks, how often have you been bothered by any of the following problems? 1. Little interest or pleasure in doing things: not at all 2. Feeling down, depressed, or hopeless: not at all 3. Trouble falling or staying asleep, or sleeping too much: not at all 4. Feeling tired or having little energy: not at all 5. Poor appetite or overeating: not at all 6. Feeling bad about yourself - or that you are a failure or have let yourself or your family down: not at all 7. Trouble concentrating on things, such as reading the newspaper or watching television: not at all 8. Moving or speaking so slowly that other people could have noticed. Or the opposite - being so fidgety or restless that you have been moving around a lot more than usual: not at all 9. Thoughts that you would be better off or of hurting yourself in some way: not at all Total score: 0 Depression Screening Interpretation: Negative Depression Screening Done: Yes 14883 - PHQ-9 Billing: Yes Source: Developed by Drs. Jin Nails, Tran Scott, Mello Li and colleagues, with an educational delmy from [employer]. Thrive Questionnaire Date Thrive assessed: 03/24/25 I am a: Patient What is your living situation today?: I have a steady place to live Within the past 12 months, did the food you bought not last and you didn't have the money to get more?: Never true Within the past 12 months, did you worry whether your food would run out before you got money to buy more?: Never true Do you have trouble paying for medicines?: No Do you have trouble getting transportation to medical appointments?: No Do you have trouble paying your heating and electricity bill?: No Do you have trouble taking care of your child, family member or friend?: No Do you have trouble with day-to-day activities such as bathing, preparing meals, shopping, managing finances, etc.?: No Are you currently unemployed and looking for a job?: No Are you interested in more education?: No Please select the resources that you would like help with: None THRIVE Score: 0 AUDIT C Alcohol Use Questionnaire (AUDIT-C) 1. How often do you have a drink containing alcohol?: 2-3 times a week 2. How many drinks containing alcohol do you have on a typical day when you are drinking?: 1 or 2 3. How often do you have six or more drinks on one occasion?: Never Total Score: 3 Score Reviewed/Action Taken: No ELVER-7 AMB Questionnaire ELVER-7 Date ELVER - 7 assessed: 03/24/25 Feeling nervous, anxious, or on edge: 0 = Not at all Not being able to stop or control worryin = Not at all Worrying too much about different things: 0 = Not at all Trouble relaxin = Not at all Being so restless that it is hard to sit still: 0 = Not at all Becoming easily annoyed or irritable: 0 = Not at all Feeling afraid as if something awful might happen: 0 = Not at all Total ELVER-7 score (0-4 normal; 5-9 mild; 10-14 moderate; 15-21 severe): 0 Source: Developed by Drs. Jin Nails, Tran Scott, Mello Li and colleagues, with an educational delmy from [employer]. ELVER-7 Assessment Billing ELVER-7 Assessment Tool: ELVER-7 Assessment 66255 Review of Systems Const Details: - Cardiovascular: Denies chest pain, dyspnea. - Gastrointestinal: Reports abdominal cramping and flatulence; denies diarrhea. - Musculoskeletal: Reports buttock and leg pain due to paraformis syndrome. Physical exam (Primary Care) Vital Signs: Last Vital Signs Temp 98.4 F 04/17/25 13:57 Pulse 83 04/17/25 13:57 Resp 16 04/17/25 13:57 BP 133/63 04/17/25 13:57 Pulse Ox 97 04/17/25 13:57 Oxygen Delivery Method Room Air 04/17/25 13:57 Care Plan Goal for BP management: <140/90 at Goal BMI result Body Mass Index 23.6 Normal BMI Tobacco/Smoking Status: Tobacco use Status Tobacco use date assessed 03/19/25 04/17/25 14:01 Patient Tobacco Use Status Never used Tobacco 04/17/25 14:01 PHQ-9: PHQ-9 Score PHQ-9: Total score 0 04/17/25 14:12 Depression Screening Interpretation: Negative Thrive Assessment: Date of Thrive Assessment Date Thrive assessed 03/24/25 04/17/25 14:01 Const Other: Appearance: Alert. Oriented X3. No acute distress. Head: Normal external exam. Normocephalic. Atraumatic. Eyes: Pupils are equal, round, and reactive to light. Extraocular movements intact. Conjunctiva and sclera normal. Eyelids normal. Throat: Pharynx normal. Uvula midline. Moist mucous membranes. Neck: Normal inspection. Neck supple. Full range of motion. Cardiovascular: Normal heart rate and rhythm. Respiratory: No respiratory distress. Painless inspiration. Back:Full range of motion noted. Skin: Skin warm and dry. Normal skin color. Normal skin turgor. No rashes/lesions/lacerations noted. Extremities: Extremities exhibit normal range of motion. Coding Level of Care Code Est Pt Level 4 (34461) Complex EM visit Add On G2211 Diagnoses Hypertension I10 Lactose intolerance E73.9 Piriformis syndrome G57.00 Hyperlipidemia E78.5 Additional Codes ELVER-7 Assessment Billing - ELVER-7 Assessment Tool: ELVER-7 Assessment 77694 ([id number]) PHQ-9 - 07558 - PHQ-9 Billing: Yes ([id number]) Assessment & Plan Assessment & Plan (1) Hypertension: Code(s): I10 - Essential (primary) hypertension Category: Medical Plan: The patient's essential hypertension is currently well-managed with lisinopril, with a recent blood pressure reading of 133/63 mmHg. She will continue on lisinopril, and follow-up is scheduled in three months to monitor blood pressure control. (2) Lactose intolerance: Code(s): E73.9 - Lactose intolerance, unspecified Category: Medical Plan: The patient reports symptoms consistent with lactose intolerance, including abdominal cramping and flatulence. She has eliminated dairy from her diet and uses lactase supplements as needed. A referral to a information delivery analyst is provided for further evaluation if symptoms persist. (3) Piriformis syndrome: Code(s): G57.00 - Lesion of sciatic nerve, unspecified lower limb Category: Medical Plan: The patient is undergoing physical therapy for paraformis syndrome, which causes buttock and leg pain. She is advised to continue physical therapy and use acetaminophen for pain management. (4) Hyperlipidemia: Code(s): E78.5 - Hyperlipidemia, unspecified Category: Medical Plan: The patient's cholesterol level is 212 mg/dL, indicating hyperlipidemia. Dietary modifications are recommended, including reducing egg consumption and increasing intake of healthier options. Plan Plan Patient was informed and verbally consented to the use of an ambient scribe for clinic note documentation during this visit. 1. Essential Hypertension The patient's essential hypertension is currently well-managed with lisinopril, with a recent blood pressure reading of 133/63 mmHg. She will continue on lisinopril, and follow-up is scheduled in three months to monitor blood pressure control. 2. Lactose Intolerance The patient reports symptoms consistent with lactose intolerance, including abdominal cramping and flatulence. She has eliminated dairy from her diet and uses lactase supplements as needed. A referral to a information delivery analyst is provided for further evaluation if symptoms persist. 3. Paraformis Syndrome The patient is undergoing physical therapy for paraformis syndrome, which causes buttock and leg pain. She is advised to continue physical therapy and use acetaminophen for pain management. 4. Hyperlipidemia The patient's cholesterol level is 212 mg/dL, indicating hyperlipidemia. Dietary modifications are recommended, including reducing egg consumption and increasing intake of healthier options. During the visit, we discussed the management of the patient's essential hypertension, which is currently controlled with lisinopril. We also addressed her gastrointestinal symptoms, likely due to lactose intolerance, and recommended dietary changes and lactase supplements. A referral to a information delivery analyst was offered for further evaluation if needed. For paraformis syndrome, the patient is advised to continue physical therapy and use acetaminophen as needed. We also discussed her hyperlipidemia and recommended dietary modifications to manage cholesterol levels. Orders: Referrals Gastroenterology Referral R10.9 - Unspecified abdominal pain, R14.3 - Flatulence Medications: New lactase (Lactaid Fast Act) administer with meals and/or snacks 9,000 units PO QID PRN 90 tabs 3RF lactose intolerance Patient Instructions: - Continue taking lisinopril as prescribed for blood pressure management. - Avoid dairy products and use lactase supplements as needed for lactose intolerance. - Follow up with a information delivery analyst if gastrointestinal symptoms persist. - Continue physical therapy and use acetaminophen for paraformis syndrome pain management. - Implement dietary changes to manage cholesterol levels, including reducing egg consumption.
--- OUTSIDE RECORDS SUMMARY | 2025-04-17 14:03 | XMS_ITS | Data Portability ---
Author Organization [facility] - [facility], [facility] Address [address] [place] [address] Care Team Providers Care Stonecutter Assistant Name Role Phone JO RAMSEY Primary Care Provider [phone] Assessment No assessment recorded. Plan of Treatment Reminders Order Date Submit Date Provider Last Modified By Organization Details Last Modified Time Details Appointments RECHECK 15 2024 10:15A Lux Boswell CNP Not available Not available Not available NEW PROBLEM 2024 02:15P Lux Zapien PA-C Not available Not available Not available Lab None recorded. Referral physical therapist referral - Lumbar core 2024 025 [email or web address] Not available 03/18/2025 10:36:09 Procedures None recorded. Surgeries None recorded. Imaging XR, lumbar spine, 2 view - 2v Lspine. room 304 2024 025 [email or web address] [facility], [address], [place], [address], 03/18/2025 10:36:09 XR, foot, 3 or more view - new pt 3 views left foot wb rm 104 2023 024 [facility], [address], [place], [address], 07/23/2024 15:39:38 Medication Orders Medrol (Clyde) 4 mg tablets in a dose pack 2024 025 [email or web address] [facility] #[id number], [address] [place], [address], 03/13/2025 08:53:23 Patient TargetsNo targets recorded. Patient InstructionsNo instructions recorded. Reason for Referral Physical Therapist Referral for Lumbar radiculopathy Lumbar core Referring Physician: Michelle Chin, Orthopedic Surgery, Encounter Date: 03/13/2025 Results Created Date Observation Date Name Description Value Unit Range Abnormal Flag Note LastModifiedBy Organization Detail LastModifiedTime 07/01/2007/01/2024 XR, foot, 3 or more view [email or web address]:/ [email or web address] ?Encry pted=s hAaTro YD8dLq bEUv6g %2BXZw aYqtaq 0bqfl% 2Fg9IQ a4ajBk vP9nXo QUaueC m3YtLR FvZlgJ JJ8mAn HZtai3 7j4223 AC0Kqa 3yEWKa nKiQtr MwF INTERFACE [facility] [address], [place], [address], 07/01/2024 15:51:59 07/01/20 24 07/01/2024 XR, foot, 3 or more view http:/ [email or web address] 0:7083 ?Encry pted=s hAaTro YD8dLq bEUv6g %2BXZw aYqtaq 0bqfl% 2Fg9IQ a4ajBk vP9nXo QUaueC m3YtLR FvZlgJ JJ8mAn HZtai3 0q1975 AC0Kqa 3yEWKa nKiQtr MwF INTERFACE [facility] [address], [place], [address], 07/01/2024 15:52:01 03/13/20 25 03/13/2025 XR, lumba r spine , 2 view http:/ [email or web address]:7083 ?Encry pted=s hAaTro YD8dLq bEUv6g %2BXZw aYqtaq 0bqfl% 2Fg9IQ a4ajBk vP9nXo QUaueC m3YtLR FvZlgJ JJ8mAn HZtai3 1o5895 AC0Kla H6MU6C vKiQtr MwF INTERFACE [facility] [address], [place], [address], 03/13/2025 08:35:15 03/13/20 25 03/13/2025 XR, lumba r spine , 2 view http:/ [email or web address]:7083 ?Encry pted=s hAaTro YD8dLq bEUv6g %2BXZw aYqtaq 0bqfl% 2Fg9IQ a4ajBk vP9nXo QUaueC m3YtLR FvZlgJ JJ8mAn HZtai3 8w1117 AC0Kla H6MU6C vKiQtr MwF INTERFACE [facility] [address], [place], [address], 03/13/2025 08:35:17 Result Notes Documentation Provider Name and Address Organization Details Recorded Time Xr, Foot, 3 Or More View : [email or web address]? Encrypted=wsVsJksVQ1cBulC Uv6g%3NRTjdRjtld5thre%2Fg 7EAc6ojDnnU3eXxVXduiOk3Fn YQJqFncCVP5jDrDIeqt73a929 7EA9Ngi2yWHSdsBlOsdDzS Not Available [facility] 07/01/2024 15:52: 00 Xr, Foot, 3 Or More View : [email or web address]? Encrypted=dzXbEfrGP0eTvvA Uv6g%7CJOhrHzrxl4bzma%2Fg 8ZAf5hmNrqQ2hXvTBsfwNs4Lo ISAmQcmIMC0hCcQYgnm85w742 8IZ1Dxg4zFTDatOqJpbCqT Not Available [facility] 07/01/2024 15:52: 02 Xr, Lumbar Spine, 2 View : [email or web address]? Encrypted=pfEuBlcAU7lUgnW Uv6g%0FDLynHhwfo0wygo%2Fg 1QFj6xxGxlS7qNzKJnpwQb4Wh BCCxRhwTPE1lRqHCcwo42p375 8YO0VroN1XJ6HxXuRfsOwR Not Available [facility] 03/13/2025 08:35: 16 Xr, Lumbar Spine, 2 View : [email or web address]? Encrypted=tbWeNbhMY3qKjjW Uv6g%3IBJdrJfdva8rkhd%2Fg 9OOr6xgBgpF5yRbDLbntOq2Rz VKJxRhaUHI8cLwIBqad93v125 3MH1RbvU8CM1StNvWsyKpG Not Available [facility] 03/13/2025 08:35: 18 Problems Name Problem SNOMED Code Status Onset Date Resolution Date Notes Provider Name and Address Organization Details Recorded Time No complaint s 685205522 Active Status: 'I'; Not Available [facility] 4 09:29:18 Impingeme nt syndrome of left shoulder region 071205500977 104 Active 2015 Problem Code: M75.42; Problem Code Type: ICD-10; Status: 'A'; Not Available [facility] 4 11:59:35 Fracture of acetabulu m 06430702 Active 2017 Problem Code: S32.421D ; Problem Code Type: ICD-10; Status: 'A'; Not Available [facility] 4 11:59:34 Closed fracture of posterior wall of right acetabulu m 692601297207 74411 Active 2017 Problem Code: S32.421A ; Problem Code Type: ICD-10; Status: 'A'; Not Available [facility] 4 11:59:35 Problem Notes None recorded. Medical Equipment None Reported. Allergies Allergen ID Allergen Name Allergen Category Reaction Reaction Severity Criticality Documentation Date Start Date Code Code System Note Provider Name and Address Organization Details Recorded Time 65693 Benadryl medicatio n Not available Not available Not available 12/03/2023201245 7 RxNorm Aller gyRea ction : 'Skin React ion, Nause a/Vom iting /Diar steffany' ; Anna laura [place] - [facility] 5 08:25:56 Medications Name Sig [...] Updated DateTime 03/13/2025 157.48 cm 26.5 kg/m2 15524.89 g Anna Gates [facility] 03/13/2025 08:25:46 Date Recorded Body height Body mass index (BMI) Body weight Provider Name and Address Organization Details Last Updated DateTime 07/01/2024 157.48 cm 24.1 kg/m2 21493.19 g Carmen Morrowgo [facility] 07/01/2024 16:07:29 Social History None recorded. Functional Status None recorded. Mental Status None recorded. Family History Nothing Reported. Medical History No medical history recorded. Gynecological HistoryNo gynecological history recorded. Obstetrics History GPAL:G 0 P 0 0 0 0 Past Encounters Encounter ID Performer Location Encounter Start Date Encounter Closed Date Diagnosis/Indication Diagnosis SNOMED-CT Code Diagnosis ICD10 Code Diagnosis Note [id number] Yasmeen Araujo PA-C [facility] [address] [place] [place] [address] 07/01/2024 15:24:41 07/23/2024 15:39:38 Pain in left foot 4005533082 79403 M79.728 [id number] MICHELLE CHIN PA-C [facility] [address] [place] [address] 03/13/2025 08:16:08 03/18/2025 10:36:09 Low back pain 384862895 M54.50 Lumbar radiculopathy 128 318827 M54.16 Health Concerns Section Related Observation LastModified by Organization Detai ls LastModified Time None Recorded Concern Status LastModified by Organization Details LastModified Time None Recorded Advance Directives Directive None Recorded Payers Insurance Date Sequence Insurance Name Policy Number Policy Brand Covered Member ID Brand Member ID Guarantor Name 03/18/2025 1 [facility] [employer] (PPO) [id number] 1 Janeth Lam [id number] Janeth Lam Notes Date Note Type Note [...] ordered, obtained and reviewed independently today at [facility]: Three-view x-rays of the left foot [...] plan. All questions were answered. Speech recognition barrel roller operator software was used to create portions of this document. An attempt at proofreading has been made to minimize errors. Please call for corrections. Yasmeen Araujo PA-C [address] [place] [address] [address], [place], [address], [facility] - [facility] 07/01/2024 17:11:58 03/13/2025 text/html [...] clonus X-rays ordered, obtained and reviewed at [facility], 2 views of the lumbar spine reveals [...] with plan all questions asked and answered. [employer] speech recognition barrel roller operator software was used to create portions of this document. An attempt at proofreading has been made to minimize errors. Please call for corrections. MICHELLE CHIN PA-C [address] [facility] [address], [place], [address], [facility] - [facility] 03/13/2025 08:57:18 OBGyn Episode No OBEpisode recorded.
--- OUTSIDE RECORDS SUMMARY | 2025-04-17 14:04 | XMS_ITS | Clinical Summary ---
Author Organization [facility] Address [facility] [employer] [address] [address] Phone Care Team Providers Care Tip Scourer Name Role Phone Jin Ospina DO Primary Care Provider Allergies No known active allergies Medications raloxifene HCl (EVISTA ORAL) Take by mouth daily. Active guaiFENesin 1,200 mg Ta12 Take by mouth 2 (two) times a day. Active estradioL (ESTRACE) 0.01 % (0.1 mg/gram) vaginal cream 2 Active metoclopramide HCl (REGLAN) 10 MG tablet Take 1 tablet (10 mg total) by mouth 4 (four) times a day as needed for nausea or vomiting. 20 tablet 5 Active doxycycline monohydrate (MONODOX) 100 MG capsule Take 1 capsule (100 mg total) by mouth 2 (two) times a day for 14 days. 28 capsule 5 04/03/20 25 Active Problems No known active problems Encounters Date Type Department Care Team Description 03/20/2025 12:06 PM EDT - 03/20/2025 4:38 PM EDT Emergency [facility] [address], [place] [id number] Discharge Disposition: Home or Self Care from Last 3 Months Immunizations Immunization Administration Dates Next Due COVID-19 (Pre-07/23) Pfizer Vaccine, mRNA, PF 08/20/2021,01/22/2021,01/01/2021 Influenza Quadrivalent Preservative Free IM 01/2020 Social History Tobacco Use Types Packs/Day Years Used Date Smoking Tobacco: Former Smokeless Tobacco: Former Tobacco Cessation:Counseling Given: No Education Answer Date Recorded Are you interested in more education? Not on josé miguel e 01/26/2023 Are you concerned about learning? Not on file 01/26/2023 No 01/26/2023 No 01/26/2023 Food Answer Date Recorded Within the past 6 months we worried whether our food would run out before we got money to buy more. Never True 03/20/2025 Within the past 6 months the food we bought just didn't last and we didn't have enough money to get more. Never True Residential Stability Answer Date Recor ded What is your housing situation today? I have delicia sing 03/20/2025 How many times have you move d in the past 12 months? Zero (I did not move) 03/20/2025 Paying for Meds Answer Date Recorded Do you have trouble paying for medicines? No 03/20/2025 Paying Utility Bills Answer Date Record ed Do you have trouble paying your heating or elect ricity bill? No 03/20/2025 Transportation Answer Date Recorded Has the lack of transportati on kept you from medical appointments or from getting medications? No 03/20/2025 Digital Access Answer Date Recorded No 03/20/2025 Yes 03/20/2025 Do you have reliable internet access at home? Ye s 03/20/2025 Do you have a device (e.g., phone, tablet, computer) with a working camera? Yes 03/20/2025 Intimate Partner Violence Answer Date R ecorded Are you denied basic needs s uch as food, clothing, or medical care? No 03/20/2025 In the past 12 months have y ou been in a relationship with a person who hurts, threatens, or tries to control you? No 03/20/2025 Are you denied basic needs s uch as food, clothing, or medical care? No 03/20/2025 In the past 12 months have y ou been in a relationship with a person who hurts, threatens, or tries to control you? No 03/20/2025 Comments Unknown Sex and Gender Information Value Date Recorded Sex Assigned at Female 12/29/2020 8:17 AM EDT Legal Sex Female 9:53 PM EDT Gender Identity Female 12/29/2020 8:17 AM EDT Sexual Orientation Straight 12/29/2020 8: 17 AM EDT Last Filed Vital Signs Vital Sign Reading Time Taken Comments Blood Pressure 126/84 03/20/2025 4:09 PM EDT Pulse 79 03/20/2025 4:09 PM EDT Temperature 36.3 C (97.3 F) 03/20/2025 4:09 PM EDT Respiratory Rate 16 03/20/2025 4:09 PM EDT Oxygen Saturation 98% 03/20/2025 4:09 PM EDT Inhaled Oxygen Concentration - - Weight 65.8 kg (145 lb) 03/20/2025 12:03 PM EDT Height 157.5 cm (5' 2 ) 03/20/2025 12:03 PM EDT Body Mass Index 26.52 03/20/2025 12:03 PM EDT Plan of Treatment Health Maintenance Due Date Last Done Comments Adult Td,Tdap Booster 1957 LIPID PANEL 1957 DEPRESSION SCREENING 1969 SMOKING Hx and SMOKELESS TOBACCO SCREENING 1970 HEPATITIS C SCREENING 1975 MAMMOGRAM 1997 COLOGUARD 2002 COLONOSCOPY 2002 COLORECTAL CANCER SCREENING 2002 FIT TEST 2002 FOBT 2002 SIGMOIDOSCOPY 2002 VIRTUAL COLONOSCOPY 2002 PNEUMOCOCCAL VACCINES (50+ years) (1 of 1 - PCV) 2007 ZOSTER VACCINES (1 of 2) 2007 OSTEOPOROSIS SCREENING INITI AL (ONE-TIME) 2022 COVID-19 VACCINE (4 - 2023-2 5 season) 2024 08/20/2021, 01/22/2021, 01/01/2021 SCREENING FOR DIABETES 03/20/2028 03/20/2025 RSV VACCINE (1 - 1-dose 75+ series) 01/29/2032 HEPATITIS A VACCINES Aged Out No long er eligible based on patient's age to complete this topic HIB VACCINES Aged Out No longer eligi ble based on patient's age to complete this topic MENINGOCOCCAL VACCINES (ACWY) Aged Out No longer eligible based on patient's age to complete this topic MENINGOCOCCAL VACCINES (B) Aged Out N o longer eligible based on patient's age to complete this topic Medical Devices Not on file Procedures Procedure Name Priority Date/Time Associated Diagnosis Comments US ABDOMEN LIMITED RIGHT UPPER QUADRANT Routine 03/20/2025 3:21 PM EDT URINE SEDIMENT STAT 03/20/2025 2:31 PM EDT COVID PANDEMIC RESPIRATORY VIRAL ORDER (PRO) STAT 03/20/2025 2:31 PM EDT URINALYSIS W/REFLEX URINE CULTURE STAT 03/20/2025 2:31 PM EDT LACTIC ACID (LACTATE) STAT 03/20/2025 1:52 PM EDT LYME SCREEN WITH REFLEX TO WESTERN BLOT, BLOOD STAT 03/20/2025 1:52 PM EDT MALARIA/BABESIA EXAM STAT 03/20/2025 1:52 PM EDT Ehrlichia/anaplasma PCR STAT 03/20/2025 1:52 PM EDT BLOOD CULTURE, ROUTINE STAT 03/20/2025 1:52 PM EDT BLOOD CULTURE, ROUTINE STAT 03/20/2025 1:52 PM EDT C-REACTIVE PROTEIN Routine 03/20/2025 12 :30 PM EDT LIPASE STAT 03/20/2025 12:30 PM EDT LFTS (HEPATIC PANEL) STAT 03/20/2025 12:30 PM EDT BASIC METABOLIC PANEL STAT 03/20/2025 12:30 PM EDT CBC AND DIFFERENTIAL STAT 03/20/2025 12:30 PM EDT from Last 3 Months Results * US ABDOMEN LIMITED RIGHT UPPER QUADRANT (03/20/2025 3:21 PM EDT) Anatomical Region Laterality Modality Abdomen Ultrasound 03/20/2025 3:42 PM EDT Impressions 03/20/2025 3:54 PM EDT No acute abnormality. No gallstones or sonographic signs of acute cholecystitis. ATTESTATION: Mir Samuel as teaching physician, have reviewed the images for this case and if necessary edited the report originally created by Chadwick Samuel MD. Narrative 03/20/2025 3:54 PM EDT US ABDOMEN LIMITED RIGHT UPPER QUADRANT Referring clinician's provided indication for this examination in Epic: Pain; upper abdominal pain TECHNIQUE: US Abdominal limited right upper quadrant. COMPARISON: [facility] FINDINGS: Liver: Small cyst measuring 10 x 7 x 11 mm in segment 6. Main Portal Vein: Patent with normal direction of flow. Gallbladder: No gallstones or gallbladder wall thickening. Morris's Sign: Negative. Biliary: No intrahepatic or extrahepatic biliary ductal dilatation. The common bile duct measures 3 mm. Right Kidney: No stones or hydronephrosis. Procedure Note Mir Jennings MBBS - 03/20/2025 US ABDOMEN LIMITED RIGHT UPPER QUADRANT Referring clinician's provided indication for this examination in Epic:Pain; upper abdominal pain TECHNIQUE: US Abdominal limited right upper quadrant. COMPARISON: [facility] FINDINGS: Liver: Small cyst measuring 10 x 7 x 11 mm in segment 6. Main Portal Vein: Patent with normal direction of flow. Gallbladder: No gallstones or gallbladder wall thickening. Morris's Sign: Negative. Biliary: No intrahepatic or extrahepatic biliary ductal dilatation. The common bile duct measures 3 mm. Right Kidney: No stones or hydronephrosis. IMPRESSION: No acute abnormality. No gallstones or sonographic signs of acutecholecystitis. ATTESTATION: Mir Samuel as teaching physician, have reviewed theimages for this case and if necessary edited the report originally createdby Chadwick Samuel MD. Leonel Crocker PA-C IMG US ABDOMEN Final Result * (ABNORMAL) Urinalysis w/reflex Urine Culture (03/20/2025 2:31 PM EDT) COLOR Yellow Yellow [facility] CLARITY Clear [facility] GLUCOSE Negative Negative [facility] BILI 1+(A) Negative [facility] KETONES Trace(A) Negative [facility] SPECIFIC GRAVITY 1.025 1.005 - 1.030 [facility] BLOOD Negative Negative [facility] PH 6.0 5.0 - 8.0 [facility] Protein-UA 1+(A) Negative [facility] NITRITE Negative Negative [facility] Leukocyte esterase, ur Negative Negative [facility] Urine (Urine) 03/20/2025 2:3 1 PM EDT 03/20/2025 2:37 PM EDT Result [facility] Yao Ann MD URINE ORDERABLES Final Resu lt Performing Organization Address [facility] Co de Phone Number [address] [address] * (ABNORMAL) Urine sediment (03/20/2025 2:31 PM EDT) WBC NONE SEEN NONE SEEN /hpf [facility] RBC 0-2(A) NONE SEEN /hpf [facility] URINE EPITHELIAL 0-4(A) NONE SEEN [facility] MUCUS Trace(A) NONE SEEN /hpf [facility] BACTERIA NONE SEEN NONE SEEN /hpf [facility] CAST 0-2 [facility] Comment:HYALINE CAST 03/20/2025 2:31 PM EDT 03/20/2025 2:37 PM EDT Yao Ann MD URINE ORDERABLES Final Resu lt Performing Organization Address [facility] Co de Phone Number [address] [address] * COVID Pandemic Respiratory Viral Order (PRO) (03/20/2025 2:31 PM EDT) Pathologist [facility] Test Ordered COVID, Flu has been ordered [facility] Specimen Source/Descriptio n NASOPHARYNGEAL SWAB [facility] Influenza A PCR Not Detected Not Detected [facility] Influenza B PCR Not Detected Not Detected [facility] SARS-CoV 2 (COVID-19) PCR Not Detected Not Detected [facility] Comment: SARS-CoV-2 not detected Negative results do not preclude SARS-CoV-2 infection and should not be used as the sole basis for patient management decisions. Negative results must be combined with clinical observations, patient history, and epidemiological information. Other (Nasopharyngeal swab) 03/20/2025 2:31 PM EDT 03/20/2025 2:37 PM EDT Leonel Crocker PA-C BODY FLUIDS AND STOOLS ORDERA BLES Final Result Performing Organization Address City/[facility]/ZIP Co de Phone Number [address] [address] * Blood Culture, Routine (03/20/2025 1:52 PM EDT) Only the most recent of2 resultswithin the time period is included. [facility] Special Requests None 03/20/2025 1:33 PM EDT [facility] BLOOD CULTURE NO GROWTH 5 DAYS 03/25/2025 2:17 PM EDT [facility] Blood (Blood) 03/20/2025 1:5 2 PM EDT 03/20/2025 2:01 PM EDT Comment:BLOOD Leonel Crocker PA-C MICROBIOLOGY - GENERAL ORDERA BLES Final Result [address] [address] * (ABNORMAL) Ehrlichia/anaplasma PCR (03/20/2025 1:52 PM EDT) [facility] ANAPLASMA PHAGOCYTO Positive(A) Negative [facility] Comment: (NOTE) Critical result. EHRLICHIA CHAFFEENS Negative Negative [facility] EHRL EWINGII/CANIS Negative Negative [facility] EHRL MURIS-LIKE Negative Negative [facility] Comment: (NOTE) ADDITIONAL INFORMATION This test was developed and its performance characteristics determined by [facility] in a manner consistent with CLIA requirements. This test has not been cleared or approved by the U.S. Food and Drug Administration. Blood 03/20/2025 1:52 PM EDT 03/20/2025 2:00 PM EDT Leonel Crocker PA-C LAB BLOOD ORDERABLES Final Re sult Performing Organization Address [facility]/ZIP Co de Phone Number [facility] [address] [place] [address] * Lyme Screen with Reflex to Immunoblot, Blood (03/20/2025 1:52 PM EDT) Lyme AB IgG Negative Negative [facility] Lyme AB IgM Negative Negative [facility] Blood 03/20/2025 1:52 PM EDT 03/20/2025 2:00 PM EDT Leonel Crocker PA-C LAB BLOOD ORDERABLES Final Re sult [facility] [address] [place] [address] * MALARIA/BABESIA EXAM (03/20/2025 1:52 PM EDT) Special Requests None 03/20/2025 1:33 PM EDT [facility] MALARIA SMEAR No Malaria or Babesia observed 03/20/2025 2:51 PM EDT [facility] Blood (Blood) 03/20/2025 1:5 2 PM EDT 03/20/2025 1:59 PM EDT us Leonel Crocker PA-C NON CULTURE MICROBIOLOGY Medina l Result Performing Organization Address City/[facility]/ZIP Co de Phone Number [address] [address] * Lactate (03/20/2025 1:52 PM EDT) LACTATE 1.76 0.50 - 2.20 mmol/L [facility] Blood 03/20/2025 1:52 PM EDT 03/20/2025 1:59 PM EDT us Leonel Crocker PA-C LAB BLOOD ORDERABLES Final Re sult Performing Organization Address [facility] Co de Phone Number [address] [address] * (ABNORMAL) LFTs (hepatic panel) (03/20/2025 12:30 PM EDT) ALKALINE PHOSPHATASE 74 39 - 117 U/L [facility] TOTAL BILIRUBIN 0.4 0.0 - 1.2 mg/dL [facility] DIRECT BILIRUBIN 0.1 0.0 - 0.2 mg/dL [facility] Bilirubin (Indirect) NOT CALCULATED 0 - 1.5 mg/dL [facility] AST 55(H) 0 - 37 U/L [facility] ALT 36 0 - 40 U/L [facility] TOTAL PROTEIN 6.7 6.5 - 8.0 g/dL [facility] ALBUMIN 3.7(L) 3.9 - 4.8 g/dL [facility] GLOBULIN 3.0 1 - 4.8 g/dL [facility] A/G Ratio 1.23 1.00 - 4.80 RATIO [facility] Blood 03/20/2025 12:3 0 PM EDT 03/20/2025 12:42 PM EDT us Yao Ann MD LAB BLOOD ORDERABLES Final Result Performing Organization Address City/[facility]/ZIP Co de Phone Number [address] [place] [address] * (ABNORMAL) CBC and differential (03/20/2025 12:30 PM EDT) WBC 2.09(L) 4.00 - 11.00 K/uL [facility] RBC 4.60 4.00 - 5.20 M/uL [facility] HGB 14.7 12.0 - 16.0 g/dL [facility] HCT 44.0 36.0 - 46.0 % [facility] PLT 70(L) 150 - 450 K/uL [facility] Comment: Microscopic estimate: Platelets decreased. Checked sample for clots MCV 95.7 80.0 - 100.0 fL [facility] MCH 32.0(H) 27.0 - 31.0 pg [facility] MCHC 33.4 32.0 - 36.0 g/dL [facility] RDW 13.6 11.5 - 14.5 % [facility] MPV 11.8 8.4 - 12.0 fL [facility] NRBC 0.00 0.00 /100 WBCs [facility] ABSOLUTE NRBC 0.00 0.00 K/uL [facility] DIFF METHOD Manual [facility] TOTAL CELLS COUNTED 100 [facility] NEUTS 73.0 48.0 - 76.0 % [facility] BANDS 10.0 0 - 10 % [facility] LYMPHS 14.0(L) 18.0 - 41.0 % [facility] Comment:Few atypical Lymphs seen. MONOS 3.0(L) 4.0 - 11.0 % [facility] ABSOLUTE NEUTS 1.73(L) 1.92 - 7.60 K/uL [facility] ABSOLUTE LYMPHS 0.29(L) 0.72 - 4.10 K/uL [facility] ABSOLUTE MONOS 0.06(L) 0.16 - 1.10 K/uL [facility] Blood 03/20/2025 12:3 0 PM EDT 03/20/2025 12:42 PM EDT us Yao Ann MD LAB BLOOD ORDERABLES Final Result [address] [address] * (ABNORMAL) C-Reactive Protein (03/20/2025 12:30 PM EDT) Pathologist [facility] C REACTIVE PROTEIN 177.4(H) 0.0 - 4.0 mg/L [facility] 03/20/2025 12:3 0 PM EDT 03/20/2025 12:42 PM EDT Yao Ann MD LAB BLOOD ORDERABLES Final Result Performing Organization Address [facility]/ZIP Co de Phone Number [address] [address] * Lipase (03/20/2025 12:30 PM EDT) Pathologist [facility] LIPASE 51 16 - 63 U/L [facility] Blood 03/20/2025 12:3 0 PM EDT 03/20/2025 12:42 PM EDT Yao Ann MD LAB BLOOD ORDERABLES Final Result Performing Organization Address [facility] de Phone Number [address] [address] * (ABNORMAL) Basic metabolic panel (03/20/2025 12:30 PM EDT) Pathologist [facility] SODIUM 132(L) 133 - 146 mmol/L [facility] CHLORIDE 98 96 - 108 mmol/L [facility] POTASSIUM 3.5 3.3 - 5.1 mmol/L [facility] CO2 21 21 - 35 mmol/L [facility] BUN 27(H) 6 - 19 mg/dL [facility] CREATININE 1.10 0.5 - 1.5 mg/dL [facility] GLUCOSE 118(H) 70 - 99 mg/dL [facility] CALCIUM 9.0 8.4 - 10.3 mg/dL [facility] EGFR 55(L) >59 mL/min/1.7 3m2 [facility] Comment:Estimated glomerular filtration rate calculated using the CKD-EPI refit equation. ANION GAP 17 10 - 20 mmol/L [facility] Blood 03/20/2025 12:3 0 PM EDT 03/20/2025 12:42 PM EDT us Yao Ann MD LAB BLOOD ORDERABLES Final Result [facility] [address] [place] [address] from Last 3 Months Insurance [facility] [employer] CHO[employer] [facility] Address: [address] [phone] MEDICARE A [facility] CHOICE MEDICARE A [facility] CHOICE MEDICARE A [facility] CHOICE MEDICARE A [facility] CHOICE [place] [address] [place] [address] [place] [address] [place] [address] CHOICE MEDICARE A [place] [address] [place] [address] CHOICE MEDICARE A Care Teams Tip Scourer Relationship Specialty Start Date End Date Jin Ospina DO [address] [place] [id number] PCP - General Internal Medicine 10/03/19 Additional Source Comments The information contained in this document represents components of the legal health record. It is not the complete legal health record.[facility]
== END 2025-04-17 14:34 | disposition home or self-care (01) ==
LOC: HO.HMCSH 14:01
PROVIDERS: PCP Physician Assistant Medical; Visit Provider Physician Assistant Medical
DX: I10 Essential (primary) hypertension (principal); E73.9 Lactose intolerance, unspecified; G57.00 Lesion of sciatic nerve, unspecified lower limb; E78.5 Hyperlipidemia, unspecified

== ENCOUNTER → 2025-04-17 14:01 | Outpatient (BNVA) | payer OTHER, SELFPAY | PROVIDERS: PCP Physician Assistant Medical; Visit Provider Physician Assistant Medical | DX: I10 Essential (primary) hypertension (principal); E73.9 Lactose intolerance, unspecified; G57.00 Lesion of sciatic nerve, unspecified lower limb; E78.5 Hyperlipidemia, unspecified; Z79.899 Other long term (current) drug therapy; Z13.31 Encounter for screening for depression | CPT/HCPCS: 96127 ==

== ENCOUNTER 2025-05-05 11:30 | Outpatient (REF) | payer OTHER, SELFPAY ==
--- NOTE | ~2025-05-05 | MM_ITS ---
EXAMINATION: MM DIAGNOSTIC DIGITAL BREAST TOMOSYNTHESIS, RIGHT CLINICAL INFORMATION: Callback from screening (which was considered as a new baseline study as the prior studies were not available for comparison) for right breast asymmetry in the lateral breast posterior depth on the CC view. COMPARISON: Prior images from outside facility were made available for comparison following today's images. Prior studies are dated March 31, 2024, March 16, 2023 and February 24, 2021. TECHNIQUE: Digital breast tomosynthesis is performed in full field ML 90 degrees and XCCL along with computer-aided detection (CAD). Synthesized 2D images are generated from the tomosynthesis. Spot compression tomosynthesis images were also obtained. FINDINGS: BREAST COMPOSITION: The breasts are heterogeneously dense, which may obscure small masses (ACR BI-RADS breast composition Category c). RIGHT BREAST: Previously suggested asymmetry in the lateral breast posterior depth is part of the asymmetry that is identified in the upper breast on the MLO/ML 90 degrees, which in turn has been stable since multiple prior studies as far back as 2020, therefore, can be considered a benign finding. MM/MM tomosynthesis added views R IMPRESSION: RIGHT BREAST: Benign, no mammographic evidence of malignancy. Normal interval follow-up is recommended in 12 months. ASSESSMENT: BI-RADS 2 - Benign Findings RECOMMENDATION: 1 year F/U Results were provided to the patient at time of visit by the technologist. This patient's information was entered into a reminder system with a target due date for their next mammogram. Electronically signed by: Lata Angel MD 05/05/2025 01:18 PM EDT
--- OUTSIDE RECORDS SUMMARY | 2025-05-05 12:20 | XMS_ITS | Clinical Summary ---
Author Organization [facility] Address [facility] [address] [place] [phone] Phone Care Team Providers Care Crib Attendant Name Role Phone Jin Ospina DO Primary Care Provider Allergies No known active allergies Medications raloxifene HCl (EVISTA ORAL) Take by mouth daily. Active guaiFENesin 1,200 mg Ta12 Take by mouth 2 (two) times a day. Active estradioL (ESTRACE) 0.01 % (0.1 mg/gram) vaginal cream 12/23/2021 Activ e metoclopramide HCl (REGLAN) 10 MG tablet Take 1 tablet (10 mg total) by mouth 4 (four) times a day as needed for nausea or vomiting. 20 tablet 03/20/2025 Active Active Problems No known active problems Encounters Date Type Department Care Team Description 03/20/2025 12:06 PM EDT - 03/20/2025 4:38 PM EDT Emergency [facility] [address] [place] [address] Discharge Disposition: Home or Self Care from [...] limited right upper quadrant. COMPARISON: [facility] FINDINGS: Liver: Small cyst measuring 10 [...] limited right upper quadrant. COMPARISON: [facility] FINDINGS: Liver: Small cyst measuring 10 [...] the report originally createdby Chadwick Samuel MD. us Leonel Crocker PA-C IMG US ABDOMEN Final Result * (ABNORMAL) Urinalysis w/reflex Urine Culture (03/20/2025 2:31 PM EDT) COLOR Yellow Yellow [facility] CLARITY Clear [facility] GLUCOSE Negative Negative [facility] BILI 1+(A) Negative [facility] KETONES Trace(A) Negative [facility] SPECIFIC GRAVITY 1.025 1.005 - 1.030 [facility] BLOOD Negative Negative [facility] PH 6.0 5.0 - 8.0 [facility] Protein-UA 1+(A) Negative [facility] NITRITE Negative Negative [facility] Leukocyte esterase, ur Negative Negative [facility] Urine (Urine) 03/20/2025 2:3 1 PM EDT 03/20/2025 2:37 PM EDT Yao Ann MD URINE ORDERABLES Final Resu lt Performing Organization Address [facility] Co de Phone Number [address] [address] * (ABNORMAL) Urine sediment (03/20/2025 2:31 PM EDT) WBC NONE SEEN NONE SEEN /hpf [facility] RBC 0-2(A) NONE SEEN /hpf [facility] URINE EPITHELIAL 0-4(A) NONE SEEN [facility] MUCUS Trace(A) NONE SEEN /hpf [facility] BACTERIA NONE SEEN NONE SEEN /hpf [facility] CAST 0-2 [facility] Comment:HYALINE CAST 03/20/2025 2:31 PM EDT 03/20/2025 2:37 PM EDT Yao Ann MD URINE ORDERABLES Final Resu lt Performing Organization Address [facility] Co de Phone Number [address] [address] * COVID Pandemic Respiratory Viral Order (PRO) (03/20/2025 2:31 PM EDT) Test Ordered COVID, Flu has been ordered [facility] Specimen Source/Descriptio n NASOPHARYNGEAL SWAB [facility] Influenza A PCR Not Detected Not Detected [facility] Influenza B PCR Not Detected Not Detected [facility] SARS-CoV 2 (COVID-19) PCR Not Detected Not Detected [facility] Comment: SARS-CoV-2 not detected Negative results do not preclude SARS-CoV-2 infection and should not be used as the sole basis for patient management decisions. Negative results must be combined with clinical observations, patient history, and epidemiological information. Other (Nasopharyngeal swab) 03/20/2025 2:31 PM EDT 03/20/2025 2:37 PM EDT Leonel SAMPSON-C BODY FLUIDS AND STOOLS ORDERA BLES Final Result Performing Organization Address [facility] Co de Phone Number [address] [address] * Blood Culture, Routine (03/20/2025 1:52 PM EDT) Only the most recent of2 resultswithin the time period is included. Pathologist [facility] Special Requests None 03/20/2025 1:33 PM EDT [facility] BLOOD CULTURE NO GROWTH 5 DAYS 03/25/2025 2:17 PM EDT [facility] Blood (Blood) 03/20/2025 1:5 2 PM EDT 03/20/2025 2:01 PM EDT Comment:BLOOD Leonel SAMPSON-David MICROBIOLOGY - GENERAL ORDERA BLES Final Result Performing Organization Address City/[facility] Co de Phone Number [address] [address] * (ABNORMAL) Ehrlichia/anaplasma PCR (03/20/2025 1:52 PM EDT) ANAPLASMA PHAGOCYTO Positive(A) Negative [facility] MED AND PAT+ Comment: (NOTE) Critical result. EHRLICHIA CHAFFEENS Negative Negative [facility] PAT+ EHRL EWINGII/CANIS Negative Negative [facility] MED AND PAT+ EHRL MURIS-LIKE Negative Negative [facility] PAT+ Comment: (NOTE) ADDITIONAL INFORMATION This test was developed and its performance characteristics determined by [facility] in a manner consistent with CLIA requirements. This test has not been cleared or approved by the U.S. Food and Drug Administration. Blood 03/20/2025 1:52 PM EDT 03/20/2025 2:00 PM EDT Leonel Crocker PA-C LAB BLOOD ORDERABLES Final Re sult Performing Organization Address [facility] Co de Phone Number [facility] PAT+ [address] [place] [address] * Lyme Screen with Reflex to Immunoblot, Blood (03/20/2025 1:52 PM EDT) Lyme AB IgG Negative Negative [facility] Lyme AB IgM Negative Negative [facility] Blood 03/20/2025 1:52 PM EDT 03/20/2025 2:00 PM EDT Leonel Crocker PA-C LAB BLOOD ORDERABLES Final Re sult Performing Organization Address [facility] Co de Phone Number [facility] [address] [place] [address] * MALARIA/BABESIA EXAM (03/20/2025 1:52 PM EDT) Special Requests None 03/20/2025 1:33 PM EDT [facility] MALARIA SMEAR No Malaria or Babesia observed 03/20/2025 2:51 PM EDT [facility] Blood (Blood) 03/20/2025 1:5 2 PM EDT 03/20/2025 1:59 PM EDT us Leonel Crocker PA-C NON CULTURE MICROBIOLOGY [place] l Result [address] [address] * Lactate (03/20/2025 1:52 PM EDT) Pathologist [facility] LACTATE 1.76 0.50 - 2.20 mmol/L [facility] Blood 03/20/2025 1:52 PM EDT 03/20/2025 1:59 PM EDT us Leonel Crocker PA-C LAB BLOOD ORDERABLES Final Re sult Performing Organization Address [facility] Co de Phone Number [address] [address] * (ABNORMAL) LFTs (hepatic panel) (03/20/2025 12:30 PM EDT) Pathologist [facility] ALKALINE PHOSPHATASE 74 39 - 117 U/L [facility] TOTAL BILIRUBIN 0.4 0.0 - 1.2 mg/dL [facility] DIRECT BILIRUBIN 0.1 0.0 - 0.2 mg/dL [facility] Bilirubin (Indirect) NOT CALCULATED 0 - 1.5 mg/dL [facility] AST 55(H) 0 - 37 U/L [facility] ALT 36 0 - 40 U/L [facility] TOTAL PROTEIN 6.7 6.5 - 8.0 g/dL [facility] ALBUMIN 3.7(L) 3.9 - 4.8 g/dL [facility] GLOBULIN 3.0 1 - 4.8 g/dL [facility] A/G Ratio 1.23 1.00 - 4.80 RATIO [facility] Blood 03/20/2025 12:3 0 PM EDT 03/20/2025 12:42 PM EDT us Yao Ann MD LAB BLOOD ORDERABLES Final Result Performing Organization Address City/[facility]/ZIP Co de Phone Number [address] [address] * (ABNORMAL) CBC and differential (03/20/2025 12:30 PM EDT) WBC 2.09(L) 4.00 - 11.00 K/uL [facility] RBC 4.60 4.00 - 5.20 M/uL [facility] HGB 14.7 12.0 - 16.0 g/dL [facility] HCT 44.0 36.0 - 46.0 % [facility] PLT 70(L) 150 - 450 K/uL [facility] Comment: Microscopic estimate: Platelets decreased. Checked sample for clots MCV 95.7 80.0 - 100.0 fL [facility] MCH 32.0(H) 27.0 - 31.0 pg [facility] MCHC 33.4 32.0 - 36.0 g/dL [facility] RDW 13.6 11.5 - 14.5 % [facility] MPV 11.8 8.4 - 12.0 fL [facility] NRBC 0.00 0.00 /100 WBCs [facility] ABSOLUTE NRBC 0.00 0.00 K/uL [facility] DIFF METHOD Manual [facility] TOTAL CELLS COUNTED 100 [facility] NEUTS 73.0 48.0 - 76.0 % [facility] BANDS 10.0 0 - 10 % [facility] LYMPHS 14.0(L) 18.0 - 41.0 % [facility] Comment:Few atypical Lymphs seen. MONOS 3.0(L) 4.0 - 11.0 % [facility] ABSOLUTE NEUTS 1.73(L) 1.92 - 7.60 K/uL [facility] ABSOLUTE LYMPHS 0.29(L) 0.72 - 4.10 K/uL [facility] ABSOLUTE MONOS 0.06(L) 0.16 - 1.10 K/uL [facility] Blood 03/20/2025 12:3 0 PM EDT 03/20/2025 12:42 PM EDT us Yao Ann MD LAB BLOOD ORDERABLES Final Result [facility] [address] [place] [address] * (ABNORMAL) C-Reactive Protein (03/20/2025 12:30 PM EDT) C REACTIVE PROTEIN 177.4(H) 0.0 - 4.0 mg/L [facility] 03/20/2025 12:3 0 PM EDT 03/20/2025 12:42 PM EDT Yao Ann MD LAB BLOOD ORDERABLES Final Result Performing Organization Address City/[facility]/ZIP Co de Phone Number [address] [address] * Lipase (03/20/2025 12:30 PM EDT) Pathologist [facility] LIPASE 51 16 - 63 U/L [facility] Blood 03/20/2025 12:3 0 PM EDT 03/20/2025 12:42 PM EDT Yao Ann MD LAB BLOOD ORDERABLES Final Result Performing Organization Address [facility] Co de Phone Number [address] [address] * (ABNORMAL) Basic metabolic panel (03/20/2025 12:30 PM EDT) Pathologist [facility] SODIUM 132(L) 133 - 146 mmol/L [facility] CHLORIDE 98 96 - 108 mmol/L [facility] POTASSIUM 3.5 3.3 - 5.1 mmol/L [facility] CO2 21 21 - 35 mmol/L [facility] BUN 27(H) 6 - 19 mg/dL [facility] CREATININE 1.10 0.5 - 1.5 mg/dL [facility] GLUCOSE 118(H) 70 - 99 mg/dL [facility] CALCIUM 9.0 8.4 - 10.3 mg/dL [facility] EGFR 55(L) >59 mL/min/1.7 3m2 [facility] Comment:Estimated glomerular filtration rate calculated using the CKD-EPI refit equation. ANION GAP 17 10 - 20 mmol/L [facility] Blood 03/20/2025 12:3 0 PM EDT 03/20/2025 12:42 PM EDT us Yao Ann MD LAB BLOOD ORDERABLES Final Result [facility] [address] [place] [address] from Last 3 Months Insurance [facility] CHOICE Member Subscriber Plan / Payer (Ef fective 2006-Present) Name:Janeth Lam Relation to Subscriber:Self Name:Janeth Lam Payer ID:[id number] (NAIC) Type:PPO Address: [address] [id number] MEDICARE A [facility] CHOICE MEDICARE A MEDICARE A MEDICARE A [facility] CHO[facility] MEDICARE A [facility] CHO[facility] MEDICARE A [facility] CHOICE MEDICARE A MEDICARE A MEDICARE A Care Teams Crib Attendant Relationship Specialty Start Date End Date Jin Ospina DO [address] [place] [id number] PCP - General Internal Medicine 10/03/19 Additional Source Comments The information contained in this document represents components of the legal health record. It is not the complete legal health record.[facility]
== END 2025-05-05 11:31 | disposition home or self-care (01) ==
LOC: HO.MAMMO 11:30
PROVIDERS: PCP Physician Assistant Medical; Visit Provider Physician Assistant Medical
DX: N64.89 Other specified disorders of breast (principal)
CPT/HCPCS: 77061; 77065

== ENCOUNTER → 2025-05-05 11:30 | Outpatient (BNV) | payer OTHER, SELFPAY | PROVIDERS: PCP Physician Assistant Medical; Visit Provider Radiology Body Imaging | DX: R92.8 Other abnormal and inconclusive findings on diagnostic imaging of breast (principal) | CPT/HCPCS: 77061; 77065 ==

== ENCOUNTER 2025-07-16 09:01 | Outpatient (AMB) | payer OTHER, SELFPAY ==
[2025-07-16 09:05] VITALS: TEMP 36.2; BMI 24.3
--- NOTE | 2025-07-16 09:05 | A.OFFPC_ITS ---
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 Feeder Required: No Accompanied by: Self / Same As Patient Allergies No Known Allergies (No Known Allergies*) Allergy (Verified 07/16/25 12:02) Medication List - Last Reconciled 07/16/25 by Felipa Milian PA-C acetaminophen 500 mg PO Q6H PRN estradiol (Vagifem) 10 mcg vaginal 2XW lisinopril 10 mg PO DAILY raloxifene (Evista) 60 mg PO DAILY Tobacco use date assessed: 07/16/25 Fall risk assessment: No Falls in past year Last assessed Fall Risk: 07/16/25 Dental Screening Dental Screen Date: 07/16/25 Did you have a dental visit in the last 12 months?: Yes Did you have a dental problem in the last 6 months where you did not have access to dental care?: No Was dental information given to patient?: Patient has dentist HPI 3 month f/u HPI Details The patient is a 70-year-old female presenting with a follow-up visit to manage blood pressure and other health concerns. The patient has a history of essential hypertension, which has been managed with lisinopril 10 mg daily. Her blood pressure readings have varied, with an initial reading of 144/81 mmHg, but subsequent readings were 120/80 mmHg and 131/60 mmHg, indicating improved control. The patient also has hyperlipidemia, with previous lab results showing elevated total cholesterol and LDL levels. She has been managing her cholesterol through dietary modifications, including the intake of flaxseed and omega-3 supplements. The patient has a history of osteopenia and fibrocystic breast disease. She is on raloxifene for these conditions, which was prescribed to address both bone density and breast tissue concerns. Recent lab work indicated vitamin B1 and zinc deficiencies, which she is addressing with multivitamin supplements. Additionally, there were findings of elevated liver enzymes, thrombocytopenia, and leukopenia, prompting consideration for further hematological evaluation if these persist. Social History - Employment: Recently retired, which ma y have contributed to improved blood pressure control. - Exercise: Started going to the gym, wh ich is positively impacting her health. - Nutrition: Consumes flaxseed and omega -3 supplements as part of dietary management for hyperlipidemia. [facility] Medical History (Updated 07/16/25 @ 12:14 by Felipa Milian PA-C) Elevated AST (SGOT) Vitamin B1 deficiency Low vitamin B12 level Piriformis syndrome Lactose intolerance Excessive gas Abdominal cramping Pure hypercholesterolemia, unspecified Hyperlipidemia Zinc deficiency Thrombocytopenia Leukopenia Anaplasmosis Upper abdominal pain Cough Insomnia Alcohol use disorder Head pain Internal hemorrhoid Diverticulosis Hypertension History of hip fracture Fibrocystic breast disease Osteopenia Surgical History Hx of colonoscopy (~03/11/21) H/O dilation and curettage H/O breast biopsy Hx of arthroscopy of shoulder Hx of tonsillectomy History of open reduction and internal fixation (ORIF) procedure Family History Mother Heart disease Diabetes Father Heart attack Social History Housing: House Alcohol intake: current Alcohol intake frequency: a few times a week Alcohol type: wine Patient Tobacco Use Status: Never used Tobacco Second Hand Smoke Exposure: Yes service: No Current occupational status: retired Cognitive needs: No Hearing needs: No Vision needs: Yes (rx glasses) Questionnaire PHQ-9 Over the last 2 weeks, how often have you been bothered by any of the following problems? 1. Little interest or pleasure in doing things: not at all 2. Feeling down, depressed, or hopeless: not at all 3. Trouble falling or staying asleep, or sleeping too much: not at all 4. Feeling tired or having little energy: not at all 5. Poor appetite or overeating: not at all 6. Feeling bad about yourself - or that you are a failure or have let yourself or your family down: not at all 7. Trouble concentrating on things, such as reading the newspaper or watching television: not at all 8. Moving or speaking so slowly that other people could have noticed. Or the opposite - being so fidgety or restless that you have been moving around a lot more than usual: not at all 9. Thoughts that you would be better off or of hurting yourself in some way: not at all Total score: 0 Depression Screening Interpretation: Negative Depression Screening Done: Yes 99347 - PHQ-9 Billing: Yes Source: Developed by Drs. Jin Nails, Tran Scott, Mello Li and colleagues, with an educational delmy from [employer]. Thrive Questionnaire Date Thrive assessed: 07/16/25 I am a: Patient What is your living situation today?: I have a steady place to live Within the past 12 months, did the food you bought not last and you didn't have the money to get more?: Never true Within the past 12 months, did you worry whether your food would run out before you got money to buy more?: Never true Do you have trouble paying for medicines?: No Do you have trouble getting transportation to medical appointments?: No Do you have trouble paying your heating and electricity bill?: No Do you have trouble taking care of your child, family member or friend?: No Do you have trouble with day-to-day activities such as bathing, preparing meals, shopping, managing finances, etc.?: No Are you currently unemployed and looking for a job?: No Are you interested in more education?: No Please select the resources that you would like help with: None THRIVE Score: 0 AUDIT C Alcohol Use Questionnaire (AUDIT-C) 1. How often do you have a drink containing alcohol?: 2-3 times a week 2. How many drinks containing alcohol do you have on a typical day when you are drinking?: 1 or 2 3. How often do you have six or more drinks on one occasion?: Never Total Score: 3 Score Reviewed/Action Taken: No ELVER-7 AMB Questionnaire ELVER-7 Date ELVER - 7 assessed: 07/16/25 Feeling nervous, anxious, or on edge: 0 = Not at all Not being able to stop or control worryin = Not at all Worrying too much about different things: 0 = Not at all Trouble relaxin = Not at all Being so restless that it is hard to sit still: 0 = Not at all Becoming easily annoyed or irritable: 0 = Not at all Feeling afraid as if something awful might happen: 0 = Not at all Total ELVER-7 score (0-4 normal; 5-9 mild; 10-14 moderate; 15-21 severe): 0 Source: Developed by López Hernandezet B.W. Tyler, Mello Li and colleagues, with an educational delmy from [employer]. ELVER-7 Assessment Billing ELVER-7 Assessment Tool: ELVER-7 Assessment 03784 Review of Systems Const Details: - Cardiovascular: Reports stable blood pressure with medication. Denies chest pain or palpitations. - Endocrine: Reports taking omega-3 supplements and multivitamins. Denies any new symptoms related to endocrine function. All systems reviewed & are unremarkable except as noted in HPI and below Physical exam (Primary Care) Vital Signs: Last Vital Signs Temp 97.2 F 07/16/25 09:05 Care Plan Goal for BP management: <140/90 at Goal BMI result Body Mass Index 24.3 Normal BMI Tobacco/Smoking Status: Tobacco use Status Tobacco use date assessed 07/16/25 07/16/25 09:10 Patient Tobacco Use Status Never used Tobacco 07/16/25 09:10 PHQ-9: PHQ-9 Score PHQ-9: Total score 0 07/16/25 09:35 Depression Screening Interpretation: Negative Thrive Assessment: Date of Thrive Assessment Date Thrive assessed 07/16/25 07/16/25 09:10 Const Other: Appearance: Alert. Oriented X3. No acute distress. Head: Normal external exam. Normocephalic. Atraumatic. Eyes: Pupils are equal, round, and reactive to light. Extraocular movements intact. Conjunctiva and sclera normal. Eyelids normal. Throat: Pharynx normal. Uvula midline. Moist mucous membranes. Neck: Normal inspection. Neck supple. Full range of motion. Cardiovascular: Normal heart rate and rhythm. Respiratory: No respiratory distress. Painless inspiration. Back: Full range of motion noted. Skin: Skin warm and dry. Normal skin color. Extremities: Extremities exhibit normal range of motion. Office Procedures Flu Questionnaire Does the patient have a severe egg allergy?: No Does the patient have severe life threatening allergies?: No Does the patient have a fever or illness today?: No Has the patient ever had Guillain-Wild Horse Syndrome?: No Has the patient ever had any past reaction to a flu shot?: No Immunizations Fluarix [id number] (PF) 45 mcg (15 mcg x 3)/0.5 mL IM syringe Performing Provider: Felipa Milian PA-C Performing Location: [facility] [place] [facility] Documented (not given) by: Ada Rojas CMA on 07/16/25 09:14 Reason Not Given: Received Previously Results Reviewed Results Reviewed: - Labs: Total cholesterol 212 mg/dL, LDL 157 mg/dL, triglycerides 97 mg/dL, HDL 40 mg/dL - Labs: Vitamin B1 low, zinc 40 (normal 60), elevated liver enzymes by 19 points, hemoglobin A1c 5.2% - Labs: Thrombocytopenia and leukopenia noted, further evaluation recommended if persistent Coding Level of Care Code Est Pt Level 4 (21231) Complex EM visit Add On G2211 Diagnoses Hypertension I10 Hyperlipidemia E78.5 Pure hypercholesterolemia, unspecified E78.00 Osteopenia M85.80 Fibrocystic breast disease N60.19 Vitamin B1 deficiency E51.9 Zinc deficiency E60 Elevated AST (SGOT) R74.01 Thrombocytopenia D69.6 Leukopenia D72.819 Additional Codes ELVER-7 Assessment Billing - ELVER-7 Assessment Tool: ELVER-7 Assessment 12408 ([id number]) PHQ-9 - 28126 - PHQ-9 Billing: Yes ([id number]) Time Spent (min) 50 Assessment & Plan Assessment & Plan (1) Hypertension: Code(s): I10 - Essential (primary) hypertension Category: Medical Plan: The patient's essential hypertension is currently managed with lisinopril 10 mg daily, which has shown effectiveness in controlling blood pressure as evidenced by improved readings. Continued monitoring of blood pressure is recommended, with follow-up appointments every three months to ensure stability. (2) Hyperlipidemia: Code(s): E78.5 - Hyperlipidemia, unspecified Category: Medical Plan: The patient is managing hyperlipidemia through dietary modifications, including flaxseed and omega-3 supplements. Further blood work will be conducted to assess cholesterol levels, and alternative medications such as Zetia may be considered if necessary. (3) Pure hypercholesterolemia, unspecified: Code(s): E78.00 - Pure hypercholesterolemia, unspecified Category: Medical Plan: The patient is managing hyperlipidemia through dietary modifications, including flaxseed and omega-3 supplements. Further blood work will be conducted to assess cholesterol levels, and alternative medications such as Zetia may be considered if necessary. (4) Osteopenia: Code(s): M85.80 - Other specified disorders of bone density and structure, unspecified site Category: Medical Plan: The patient is on raloxifene for osteopenia, which also addresses fibrocystic breast disease. Bone density will continue to be monitored to assess the effectiveness of the treatment. (5) Fibrocystic breast disease: Code(s): N60.19 - Diffuse cystic mastopathy of unspecified breast Category: Medical Plan: Raloxifene is prescribed for fibrocystic breast disease to reduce the risk of breast cancer and manage dense breast tissue. Regular monitoring and follow-up are advised to ensure no progression of the condition. (6) Vitamin B1 deficiency: Code(s): E51.9 - Thiamine deficiency, unspecified Category: Medical Plan: The patient is addressing vitamin B1 deficiency with multivitamin supplements. Re-evaluation of vitamin levels will be conducted to ensure adequacy of supplementation. (7) Zinc deficiency: Code(s): E60 - Dietary zinc deficiency Category: Medical Plan: Zinc deficiency is being managed with multivitamin supplements containing zinc. Follow-up lab work will be necessary to confirm improvement in zinc levels. (8) Elevated AST (SGOT): Code(s): R74.01 - Elevation of levels of liver transaminase levels Category: Medical Plan: Elevated liver enzymes were noted, but not significantly high, and will be monitored for any changes. Further evaluation will be considered if liver enzyme levels remain elevated. (9) Thrombocytopenia: Code(s): D69.6 - Thrombocytopenia, unspecified Category: Medical Plan: Thrombocytopenia was identified, and further hematological evaluation will be pursued if platelet counts remain low. Referral to hematology may be necessary for comprehensive assessment. (10) Leukopenia: Code(s): D72.819 - Decreased white blood cell count, unspecified Category: Medical Plan: Leukopenia was observed, and further investigation will be conducted to determine the cause. Referral to hematology is planned if leukopenia persists. Plan Plan Patient was informed and verbally consented to the use of an ambient scribe for clinic note documentation during this visit. 1. Essential Hypertension The patient's essential hypertension is currently managed with lisinopril 10 mg daily, which has shown effectiveness in controlling blood pressure as evidenced by improved readings. Continued monitoring of blood pressure is recommended, with follow-up appointments every three months to ensure stability. 2. Hyperlipidemia The patient is managing hyperlipidemia through dietary modifications, including flaxseed and omega-3 supplements. Further blood work will be conducted to assess cholesterol levels, and alternative medications such as Zetia may be considered if necessary. 3. Osteopenia The patient is on raloxifene for osteopenia, which also addresses fibrocystic breast disease. Bone density will continue to be monitored to assess the effectiveness of the treatment. 4. Fibrocystic Breast Disease Raloxifene is prescribed for fibrocystic breast disease to reduce the risk of b reast cancer and manage dense breast tissue. Regular monitoring and follow-up are advised to ensure no progression of the condition. 5. Vitamin B1 Deficiency The patient is addressing vitamin B1 deficiency with multivitamin supplements. Re-evaluation of vitamin levels will be conducted to ensure adequacy of supplementation. 6. Zinc Deficiency Zinc deficiency is being managed with multivitamin supplements containing zinc. Follow-up lab work will be necessary to confirm improvement in zinc levels. 7. Elevated Liver Enzymes Elevated liver enzymes were noted, but not significantly high, and will be monitored for any changes. Further evaluation will be considered if liver enzyme levels remain elevated. 8. Thrombocytopenia Thrombocytopenia was identified, and further hematological evaluation will be pursued if platelet counts remain low. Referral to hematology may be necessary for comprehensive assessment. 9. Leukopenia Leukopenia was observed, and further investigation will be conducted to determine the cause. Referral to hematology is planned if leukopenia persists. During the visit, we discussed the management of the patient's essential hypertension with lisinopril and the importance of regular monitoring. We also reviewed the patient's hyperlipidemia management through dietary changes and the potential use of Zetia if necessary. The patient was informed about the need for follow-up blood work to monitor vitamin and mineral levels, as well as liver enzymes. We discussed the possibility of referral to hematology if th rombocytopenia and leukopenia persist. Orders: Orders Influenza [id number] Immunization Today Z23 - Encounter for immunization Lipid Panel Today Z00.00 - Encounter for general adult medical examination without abnormal findings Complete Blood Count Auto Diff Today Z00.00 - Encounter for general adult medical examination without abnormal findings C Reactive Protein Today Z00.00 - Encounter for general adult medical examination without abnormal findings Erythrocyte Sedimentation Rate Today Z00.00 - Encounter for general adult medical examination without abnormal findings Medications: Refilled lisinopril 10 mg PO DAILY 90 tabs 3RF I10 - Essential (primary) hypertension Patient Instructions: - Continue taking lisinopril 10 mg daily for blood pressure management. - Maintain dietary modifications, including flaxseed and omega-3 supplements, to manage cholesterol levels. - Follow up with blood work as discussed to monitor vitamin levels and liver enzymes. - Schedule a follow-up appointment in three months to reassess blood pressure and overall health. - Consider referral to hematology if blood cell counts remain low.
== END 2025-07-16 09:50 | disposition home or self-care (01) ==
LOC: HO.HMCSH 09:01
PROVIDERS: PCP Physician Assistant Medical; Visit Provider Physician Assistant Medical
DX: I10 Essential (primary) hypertension (principal); E78.5 Hyperlipidemia, unspecified; E78.00 Pure hypercholesterolemia, unspecified; M85.80 Other specified disorders of bone density and structure, unspecified site; N60.19 Diffuse cystic mastopathy of unspecified breast; E51.9 Thiamine deficiency, unspecified; E60 Dietary zinc deficiency; R74.01 Elevation of levels of liver transaminase levels; D69.6 Thrombocytopenia, unspecified; D72.819 Decreased white blood cell count, unspecified; Z23 Encounter for immunization

== ENCOUNTER → 2025-07-16 09:01 | Outpatient (BNVA) | payer OTHER, SELFPAY | PROVIDERS: PCP Physician Assistant Medical; Visit Provider Physician Assistant Medical | DX: I10 Essential (primary) hypertension (principal); E78.5 Hyperlipidemia, unspecified; M85.80 Other specified disorders of bone density and structure, unspecified site; E78.00 Pure hypercholesterolemia, unspecified; N60.19 Diffuse cystic mastopathy of unspecified breast; E51.9 Thiamine deficiency, unspecified; E60 Dietary zinc deficiency; R74.01 Elevation of levels of liver transaminase levels; D69.6 Thrombocytopenia, unspecified; D72.819 Decreased white blood cell count, unspecified; Z28.89 Immunization not carried out for other reason | CPT/HCPCS: 90471; 96127 ==